=== PATIENT | male | born 1955 | race Caucasian/White ===

== ENCOUNTER → 2016-04-20 | Outpatient (REF) | payer OTHER ==
[2016-04-20 17:44] LABS: ALBUMIN/GLOBULIN RATIO 1.48 (1.00-1.93); ALKALINE PHOSPHATASE 60 U/L (45-117); ALT/SGPT 41 U/L (12-78); ANION GAP 6 MEQ/L (8-16); AST/SGOT 29 U/L (15-37); BILIRUBIN,TOTAL 0.7 MG/DL (0.2-1.0); BLOOD UREA NITROGEN 18 MG/DL (7-18); CALCIUM LEVEL 8.6 MG/DL (8.5-10.1); CARBON DIOXIDE LEVEL 30 MEQ/L (21-32); CHLORIDE LEVEL 106 MEQ/L (98-107); CREATININE FOR GFR 1.17 MG/DL (0.70-1.30); FERRITIN 108 NG/ML (26-388); GLOMERULAR FILTRATION RATE > 60.0 (>56); GLUCOSE, FASTING 89 MG/DL (70-105); MAGNESIUM LEVEL 2.2 MG/DL (1.8-2.4); PERCENT SATURATION 19.5 % (19.7-37.4); PHOSPHORUS LEVEL 3.4 MG/DL (2.5-4.9); POTASSIUM SERUM 3.9 MEQ/L (3.5-5.1); SODIUM LEVEL 142 MEQ/L (136-145); TOTAL IRON BINDING CAPACITY 307 UG/DL (250-450); TOTAL PROTEIN 6.7 GM/DL (6.4-8.2)
[2016-04-20 17:48] LABS: VITAMIN B12 LEVEL 854 PG/ML (247-911)
[2016-04-20 18:05] LABS: BASO % 0.4 % (0.0-1.0); EOS # 0.1 K/mm3 (0.0-0.50); EOS % 1.5 % (0.0-3.0); LARGE UNSTAINED CELL # 0.1 K/mm3 (0.0-0.4); LARGE UNSTAINED CELL % 1.8 % (0.0-4.0); LYMPH # 1.3 K/mm3 (1.5-4.5); LYMPH % 26.9 % (24.0-44.0); MEAN CORPUSCULAR HEMOGLOBIN 30.7 pg (27.0-33.0); MEAN CORPUSCULAR HGB CONC 33.7 g/dl (32.0-36.5); MEAN CORPUSCULAR VOLUME 91.2 fl (80.0-96.0); MONO # 0.2 K/mm3 (0.0-0.8); MONO % 4.3 % (0.0-5.0); NEUTROPHILS # 3.2 K/mm3 (1.8-7.7); NEUTROPHILS % 65.1 % (36.0-66.0); PLATELET COUNT, AUTOMATED 189 k/mm3 (150-450); RED CELL DISTRIBUTION WIDTH 12.1 % (11.5-14.5); WHITE BLOOD COUNT 4.9 K/mm3 (4.0-10.0)
== END ==
LOC: M LABDRAW1 16:54
PROVIDERS: ATTEND Surgery
DX: K91.2 Postsurgical malabsorption, not elsewhere classified (principal); Z98.84 Bariatric surgery status; E55.9 Vitamin D deficiency, unspecified

== ENCOUNTER → 2016-05-20 | Outpatient (REF) | payer OTHER ==
[2016-05-20 12:34] LABS: ALBUMIN 3.9 GM/DL (3.2-5.2); ALBUMIN/GLOBULIN RATIO 1.63 (1.00-1.93); ALKALINE PHOSPHATASE 61 U/L (45-117); ALT/SGPT 34 U/L (12-78); ANION GAP 8 MEQ/L (8-16); AST/SGOT 19 U/L (15-37); BLOOD UREA NITROGEN 22 MG/DL (7-18); CALCIUM LEVEL 8.7 MG/DL (8.5-10.1); CARBON DIOXIDE LEVEL 30 MEQ/L (21-32); CHLORIDE LEVEL 107 MEQ/L (98-107); CHOLESTEROL LEVEL 117 MG/DL (<200); CREATININE FOR GFR 0.77 MG/DL (0.70-1.30); GLOMERULAR FILTRATION RATE > 60.0 (>56); GLUCOSE, FASTING 101 MG/DL (70-105); POTASSIUM SERUM 3.9 MEQ/L (3.5-5.1); SODIUM LEVEL 145 MEQ/L (136-145); TOTAL PROTEIN 6.3 GM/DL (6.4-8.2); TRIGLYCERIDES LEVEL 67 MG/DL (<150)
== END ==
LOC: M LABDRAW1 11:58
PROVIDERS: ATTEND Emergency Medicine
DX: I10 Essential (primary) hypertension (principal); E78.2 Mixed hyperlipidemia; E55.9 Vitamin D deficiency, unspecified

== ENCOUNTER → 2016-10-14 | Outpatient (REF) | payer OTHER ==
[2016-10-14 12:36] LABS: BASO % 0.3 % (0.0-1.0); EOS # 0.1 K/mm3 (0.0-0.50); EOS % 1.8 % (0.0-3.0); LARGE UNSTAINED CELL % 1.1 % (0.0-4.0); LYMPH # 0.9 K/mm3 (1.5-4.5); LYMPH % 23.8 % (24.0-44.0); MEAN CORPUSCULAR HEMOGLOBIN 32.6 pg (27.0-33.0); MEAN CORPUSCULAR HGB CONC 35.8 g/dl (32.0-36.5); MEAN CORPUSCULAR VOLUME 91.1 fl (80.0-96.0); MONO # 0.3 K/mm3 (0.0-0.8); MONO % 6.7 % (0.0-5.0); NEUTROPHILS # 2.6 K/mm3 (1.8-7.7); NEUTROPHILS % 66.2 % (36.0-66.0); PLATELET COUNT, AUTOMATED 176 k/mm3 (150-450); RED CELL DISTRIBUTION WIDTH 12.4 % (11.5-14.5); WHITE BLOOD COUNT 3.8 K/mm3 (4.0-10.0)
[2016-10-14 12:54] LABS: VITAMIN B12 LEVEL 1095 PG/ML (247-911)
[2016-10-14 13:00] LABS: ALBUMIN 3.8 GM/DL (3.2-5.2); ALBUMIN/GLOBULIN RATIO 1.41 (1.00-1.93); ALKALINE PHOSPHATASE 55 U/L (45-117); ALT/SGPT 38 U/L (12-78); ANION GAP 8 MEQ/L (8-16); AST/SGOT 17 U/L (15-37); BLOOD UREA NITROGEN 20 MG/DL (7-18); CARBON DIOXIDE LEVEL 29 MEQ/L (21-32); CHLORIDE LEVEL 107 MEQ/L (98-107); CREATININE FOR GFR 0.89 MG/DL (0.70-1.30); FERRITIN 123 NG/ML (26-388); GLOMERULAR FILTRATION RATE > 60.0 (>56); GLUCOSE, FASTING 100 MG/DL (70-105); MAGNESIUM LEVEL 2.3 MG/DL (1.8-2.4); PHOSPHORUS LEVEL 2.6 MG/DL (2.5-4.9); SODIUM LEVEL 144 MEQ/L (136-145); TOTAL PROTEIN 6.5 GM/DL (6.4-8.2)
[2016-10-15 11:34] LABS: PRETREATED FOLATE FOR RBCFOL 14.7 NG/ML
== END ==
LOC: M LABDRAW1 11:05
PROVIDERS: ATTEND Surgery
DX: K92.1 Melena (principal); E55.9 Vitamin D deficiency, unspecified; Z98.84 Bariatric surgery status

== ENCOUNTER → 2016-11-30 | Outpatient (REF) | payer OTHER ==
[2016-11-30 12:13] LABS: BASO % 0.3 % (0.0-1.0); EOS # 0.1 K/mm3 (0.0-0.50); EOS % 1.5 % (0.0-3.0); LARGE UNSTAINED CELL # 0.1 K/mm3 (0.0-0.4); LARGE UNSTAINED CELL % 1.5 % (0.0-4.0); LYMPH % 26.8 % (24.0-44.0); MEAN CORPUSCULAR HEMOGLOBIN 33.3 pg (27.0-33.0); MEAN CORPUSCULAR HGB CONC 36.2 g/dl (32.0-36.5); MONO # 0.2 K/mm3 (0.0-0.8); MONO % 5.1 % (0.0-5.0); NEUTROPHILS # 2.5 K/mm3 (1.8-7.7); NEUTROPHILS % 64.8 % (36.0-66.0); PLATELET COUNT, AUTOMATED 145 k/mm3 (150-450); WHITE BLOOD COUNT 3.9 K/mm3 (4.0-10.0)
[2016-11-30 12:18] LABS: ALBUMIN 3.8 GM/DL (3.2-5.2); ALBUMIN/GLOBULIN RATIO 1.46 (1.00-1.93); ALKALINE PHOSPHATASE 52 U/L (45-117); ALT/SGPT 39 U/L (12-78); ANION GAP 5 MEQ/L (8-16); AST/SGOT 18 U/L (15-37); BLOOD UREA NITROGEN 25 MG/DL (7-18); CALCIUM LEVEL 8.9 MG/DL (8.5-10.1); CARBON DIOXIDE LEVEL 32 MEQ/L (21-32); CHLORIDE LEVEL 107 MEQ/L (98-107); CHOLESTEROL LEVEL 116 MG/DL (<200); CREATININE FOR GFR 0.77 MG/DL (0.70-1.30); GLOMERULAR FILTRATION RATE > 60.0 (>56); GLUCOSE, FASTING 84 MG/DL (70-105); SODIUM LEVEL 144 MEQ/L (136-145); TOTAL PROTEIN 6.4 GM/DL (6.4-8.2); TRIGLYCERIDES LEVEL 56 MG/DL (<150)
[2016-11-30 12:46] LABS: VITAMIN B12 LEVEL 766 PG/ML (247-911)
[2016-11-30 12:47] LABS: FOLATE > 24.0 NG/ML (>5.4)
== END ==
LOC: M LABDRAW1 09:59
PROVIDERS: ATTEND Emergency Medicine
DX: R73.01 Impaired fasting glucose (principal); I10 Essential (primary) hypertension; E78.2 Mixed hyperlipidemia; Z98.84 Bariatric surgery status; E55.9 Vitamin D deficiency, unspecified

== ENCOUNTER → 2017-03-22 | Outpatient (CLI) | payer BC, OTHER ==
[2017-03-22 21:34] LABS: BASO % 0.3 % (0.0-1.0); EOS # 0.1 10^3/uL (0.0-0.50); EOS % 1.8 % (0.0-3.0); HEMATOCRIT 42.1 % (42.0-52.0); IMMATURE GRANULOCYTE # 0.1 10^3/uL (0-0); IMMATURE GRANULOCYTE % 0.7 % (0-0); LYMPH # 1.7 10^3/uL (1.5-4.5); LYMPH % 24.7 % (24.0-44.0); MEAN CORPUSCULAR HEMOGLOBIN 30.6 pg (27.0-33.0); MEAN CORPUSCULAR HGB CONC 33.3 g/dl (32.0-36.5); MEAN CORPUSCULAR VOLUME 92.1 fl (80.0-96.0); MONO # 0.5 10^3/uL (0.0-0.8); MONO % 7.9 % (0.0-5.0); NEUTROPHILS # 4.4 10^3/uL (1.8-7.7); NEUTROPHILS % 64.6 % (36.0-66.0); PLATELET COUNT, AUTOMATED 219 10^3/uL (150-450); RED BLOOD COUNT 4.57 10^6/uL (4.30-6.10); RED CELL DISTRIBUTION WIDTH 11.9 % (11.5-14.5); WHITE BLOOD COUNT 6.9 10^3/uL (4.0-10.0)
== END ==
LOC: M ADAMS 15:09
DX: J20.9 Acute bronchitis, unspecified (principal)
CPT/HCPCS: 85025

== ENCOUNTER → 2017-06-02 | Outpatient (REF) | payer OTHER ==
[2017-06-02 12:11] LABS: TOTAL 25(OH) VITAMIN D 34.7 NG/ML (30.0-100.0)
[2017-06-02 13:33] LABS: ALBUMIN 3.8 GM/DL (3.2-5.2); ALBUMIN/GLOBULIN RATIO 1.46 (1.00-1.93); ALKALINE PHOSPHATASE 62 U/L (45-117); ALT/SGPT 38 U/L (12-78); ANION GAP 6 MEQ/L (8-16); AST/SGOT 14 U/L (7-37); BILIRUBIN,TOTAL 0.9 MG/DL (0.2-1.0); BLOOD UREA NITROGEN 20 MG/DL (7-18); CALCIUM LEVEL 8.8 MG/DL (8.5-10.1); CARBON DIOXIDE LEVEL 31 MEQ/L (21-32); CHLORIDE LEVEL 108 MEQ/L (98-107); CHOLESTEROL LEVEL 121 MG/DL (<200); CREATININE FOR GFR 0.88 MG/DL (0.70-1.30); GLOMERULAR FILTRATION RATE > 60.0 (>56); GLUCOSE, FASTING 100 MG/DL (70-100); HDL CHOLESTEROL 37 MG/DL (>40); LDL CHOLESTEROL 65.8 MG/DL (<100); NON-HDL-C 84 MG/DL; POTASSIUM SERUM 3.8 MEQ/L (3.5-5.1); SODIUM LEVEL 145 MEQ/L (136-145); TOTAL PROTEIN 6.4 GM/DL (6.4-8.2); TRIGLYCERIDES LEVEL 91 MG/DL (<150)
== END ==
LOC: M LABDRAW1 10:52
DX: E55.9 Vitamin D deficiency, unspecified (principal); E78.2 Mixed hyperlipidemia; I10 Essential (primary) hypertension
CPT/HCPCS: 80053

== ENCOUNTER → 2017-12-05 | Outpatient (REF) | payer OTHER ==
[2017-12-05 13:25] LABS: BASO % 0.4 % (0.0-1.0); EOS # 0.1 10^3/uL (0.0-0.50); EOS % 2.1 % (0.0-3.0); HEMATOCRIT 43.8 % (42.0-52.0); HEMOGLOBIN 14.5 g/dl (13.5-17.5); IMMATURE GRANULOCYTE % 0.6 % (0-3.0); LYMPH # 1.3 10^3/uL (1.5-4.5); LYMPH % 26.8 % (24.0-44.0); MEAN CORPUSCULAR HEMOGLOBIN 31.2 pg (27.0-33.0); MEAN CORPUSCULAR HGB CONC 33.1 g/dl (32.0-36.5); MEAN CORPUSCULAR VOLUME 94.2 fl (80.0-96.0); MONO # 0.4 10^3/uL (0.0-0.8); MONO % 8.6 % (0.0-5.0); NEUTROPHILS # 2.9 10^3/uL (1.8-7.7); NEUTROPHILS % 61.5 % (36.0-66.0); PLATELET COUNT, AUTOMATED 187 10^3/uL (150-450); RED BLOOD COUNT 4.65 10^6/uL (4.30-6.10); RED CELL DISTRIBUTION WIDTH 12.2 % (11.5-14.5); WHITE BLOOD COUNT 4.7 10^3/uL (4.0-10.0)
[2017-12-05 13:37] LABS: ALBUMIN 3.9 GM/DL (3.2-5.2); ALKALINE PHOSPHATASE 61 U/L (45-117); ALT/SGPT 35 U/L (12-78); ANION GAP 8 MEQ/L (8-16); AST/SGOT 22 U/L (7-37); BLOOD UREA NITROGEN 22 MG/DL (7-18); CALCIUM LEVEL 8.9 MG/DL (8.8-10.2); CARBON DIOXIDE LEVEL 30 MEQ/L (21-32); CHLORIDE LEVEL 105 MEQ/L (98-107); CHOLESTEROL LEVEL 131 MG/DL (<200); CHOLESTEROL RISK RATIO 3.195 (<5); CREATININE FOR GFR 0.91 MG/DL (0.70-1.30); GLOMERULAR FILTRATION RATE > 60.0 (>49); GLUCOSE, FASTING 96 MG/DL (70-100); HDL CHOLESTEROL 41 MG/DL (>40); LDL CHOLESTEROL 77 MG/DL (<100); NON-HDL-C 90 MG/DL; POTASSIUM SERUM 3.8 MEQ/L (3.5-5.1); SODIUM LEVEL 143 MEQ/L (136-145); TOTAL PROTEIN 6.5 GM/DL (6.4-8.2); TRIGLYCERIDES LEVEL 66 MG/DL (<150)
[2017-12-05 14:00] LABS: FOLATE 19.3 NG/ML (>5.4); TOTAL 25(OH) VITAMIN D 34.6 NG/ML (30.0-100.0)
[2017-12-05 14:43] LABS: ESTIMATED AVERAGE GLUCOSE 108 MG/DL (60-110); HEMOGLOBIN A1c 5.4 %
== END ==
LOC: M LABDRAW1 09:34
DX: I10 Essential (primary) hypertension (principal); E78.2 Mixed hyperlipidemia; R73.01 Impaired fasting glucose; E55.9 Vitamin D deficiency, unspecified; Z98.84 Bariatric surgery status

== ENCOUNTER → 2018-05-25 | Outpatient (REF) | payer OTHER ==
[2018-05-25 12:46] LABS: ALBUMIN 3.9 GM/DL (3.2-5.2); ALT/SGPT 35 U/L (12-78); BILIRUBIN,TOTAL 0.9 MG/DL (0.2-1.0); BLOOD UREA NITROGEN 23 MG/DL (7-18); CALCIUM LEVEL 9.1 MG/DL (8.8-10.2); CARBON DIOXIDE LEVEL 33 MEQ/L (21-32); CHLORIDE LEVEL 105 MEQ/L (98-107); CHOLESTEROL LEVEL 152 MG/DL (<200); CHOLESTEROL RISK RATIO 4.342 (<5); CREATININE FOR GFR 0.86 MG/DL (0.70-1.30); GLOMERULAR FILTRATION RATE > 60.0 (>49); GLUCOSE, FASTING 96 MG/DL (70-100); HDL CHOLESTEROL 35 MG/DL (>40); LDL CHOLESTEROL 91 MG/DL (<100); NON-HDL-C 117 MG/DL; POTASSIUM SERUM 3.5 MEQ/L (3.5-5.1); SODIUM LEVEL 142 MEQ/L (136-145); TOTAL PROTEIN 6.4 GM/DL (6.4-8.2); TRIGLYCERIDES LEVEL 131 MG/DL (<150)
[2018-05-25 12:53] LABS: TOTAL 25(OH) VITAMIN D 28.6 NG/ML (30.0-100.0)
== END ==
LOC: M LABDRAW1 11:48
PROVIDERS: ATTEND Emergency Medicine
DX: I10 Essential (primary) hypertension (principal); E78.2 Mixed hyperlipidemia; E55.9 Vitamin D deficiency, unspecified

== ENCOUNTER 2018-08-13 02:13 | Emergency (ER) | payer BC, OTHER ==
[~2018-08-13] VITALS: Ht 177.8 cm; Wt 109.1 kg
[2018-08-13] MEDS ORDERED: AMLO10TA5 (02:49)
[2018-08-13] MEDS ORDERED: CHLO125TA (02:49)
[2018-08-13] MEDS ORDERED: VITA500045 (02:49)
[2018-08-13] MEDS ORDERED: LOSA100T50 (02:49)
[2018-08-13] MEDS ORDERED: BUPR300T34 (02:49)
[2018-08-13] MEDS ORDERED: HYDR-643 (02:49)
[2018-08-13] MEDS ORDERED: GABAPOW41 (02:49)
[2018-08-13 02:51] LABS: BASO % 0.4 % (0.0-1.0); EOS # 0.1 10^3/uL (0.0-0.50); EOS % 0.9 % (0.0-3.0); HEMATOCRIT 43.8 % (42.0-52.0); HEMOGLOBIN 15.3 g/dl (13.5-17.5); LYMPH # 2.4 10^3/uL (1.5-4.5); LYMPH % 30.1 % (24.0-44.0); MEAN CORPUSCULAR HEMOGLOBIN 31.2 pg (27.0-33.0); MEAN CORPUSCULAR HGB CONC 34.9 g/dl (32.0-36.5); MEAN CORPUSCULAR VOLUME 89.4 fl (80.0-96.0); MONO # 0.7 10^3/uL (0.0-0.8); MONO % 8.2 % (0.0-5.0); NEUTROPHILS # 4.7 10^3/uL (1.8-7.7); PLATELET COUNT, AUTOMATED 240 10^3/uL (150-450); WHITE BLOOD COUNT 7.9 10^3/uL (4.0-10.0)
[2018-08-13] MEDS ORDERED: KETOROLAC 30 MG/ML VIAL (J1885) As Ordered ONE (02:52)
[2018-08-13] MEDS ORDERED: KETOROLAC 30 MG/ML VIAL (J1885) IV ONE (03:00)
[2018-08-13 03:17] LABS: ALBUMIN 3.8 GM/DL (3.2-5.2); ALT/SGPT 38 U/L (12-78); BILIRUBIN,DIRECT 0.1 MG/DL (0.0-0.2); BILIRUBIN,TOTAL 0.6 MG/DL (0.2-1.0); BLOOD UREA NITROGEN 27 MG/DL (7-18); CALCIUM LEVEL 8.7 MG/DL (8.8-10.2); CARBON DIOXIDE LEVEL 26 MEQ/L (21-32); CHLORIDE LEVEL 108 MEQ/L (98-107); CREATININE FOR GFR 1.17 MG/DL (0.70-1.30); GLOMERULAR FILTRATION RATE > 60.0 (>49); GLUCOSE, FASTING 144 MG/DL (70-100); LIPASE 106 U/L (73-393); SODIUM LEVEL 145 MEQ/L (136-145)
[2018-08-13] MEDS ORDERED: POTASSIUM CHLORIDE 10 MEQ SR TABLET PO ONE (07:15)
--- NOTE | 2018-08-13 07:31 | REPVR ---
EXAM: CT Abdomen and Pelvis Without Contrast EXAM DATE/TIME: 08/13/2018 5:52 AM CLINICAL HISTORY: 63 years old, male; Abdominal pain; Flank; Right; Additional info: Right flank pain, hematuria TECHNIQUE: Imaging protocol: Axial computed tomography images of the abdomen and pelvis without contrast. Coronal and sagittal reformatted images were created and reviewed. Radiation optimization: All CT scans at this facility use at least one of these dose optimization techniques: automated exposure control; mA and/or kV adjustment per patient size (includes targeted exams where dose is matched to clinical indication); or iterative reconstruction. COMPARISON: CT ABD PELVIS W/O CONTRAST 07/11/2015 8:13 AM FINDINGS: Pleural space: There is pleural thickening at the left lung base posteriorly. ABDOMEN: Liver: Normal. No mass. Gallbladder and bile ducts: Normal. No calcified stones. No ductal dilation. Pancreas: Normal. No ductal dilation. Spleen: There is accessory splenic tissue. There is splenomegaly, similar to prior study. Adrenals: Normal. No mass. Kidneys and ureters: There is moderate right-sided hydronephrosis. There is a 3 mm obstructing ureterovesical junction calculus. Stomach and bowel: Postsurgical changes are noted involving the stomach, please correlate with surgical history. Appendix: No evidence of appendicitis. PELVIS: Bladder: Unremarkable as visualized. Reproductive: There are multiple prostatic calcifications. ABDOMEN and PELVIS: Intraperitoneal space: Normal. No free air. No significant fluid collection. Bones/joints: No acute fracture. No dislocation. Soft tissues: Unremarkable. Vasculature: Normal. No abdominal aortic aneurysm. Lymph nodes: Normal. No enlarged lymph nodes. IMPRESSION: There is moderate right-sided hydronephrosis. There is a 3 mm obstructing ureterovesical junction calculus. Electronically signed by: Jaziel Johnson On 08/13/2018 07:30:56 AM
[2018-08-13] MEDS ORDERED: CIPR-249 PO (07:43)
[2018-08-13] MEDS ORDERED: FLOM0.4C39 PO (07:44)
[2018-08-13] MEDS ORDERED: NORC1TAB7 PO (07:45)
[2018-08-13] MEDS ORDERED: CIPROFLOXACIN 500 MG TAB PO ONE (07:45)
[2018-08-13] MEDS ORDERED: K-TA10TA2 PO (07:48)
[2018-08-13 08:06] VITALS: BP 176/92
== END 2018-08-13 08:08 | disposition home or self-care (01) ==
LOC: M ED 02:13
DX: N39.0 Urinary tract infection, site not specified (principal); N13.30 Unspecified hydronephrosis; I10 Essential (primary) hypertension; N20.1 Calculus of ureter; E87.6 Hypokalemia; Z79.899 Other long term (current) drug therapy; Z88.1 Allergy status to other antibiotic agents; Z88.2 Allergy status to sulfonamides; Z88.8 Allergy status to other drugs, medicaments and biological substances; Z91.048 Other nonmedicinal substance allergy status
CPT/HCPCS: 74176; 80048; 80076; 81001; 83690; 85025; 87086; 96374; 99284; J1885

== ENCOUNTER → 2018-09-01 | Outpatient (REF) | payer OTHER ==
[~2018-09-01] MED LIST: AMLO10TA5; BUPR300T34; CHLO125TA; CIPR-249 PO; FLOM0.4C39 PO; GABAPOW41; HYDR-643; K-TA10TA2 PO; LOSA100T50; NORC1TAB7 PO; VITA500045
[2018-09-01 19:35] LABS: APPEARANCE, URINE CLEAR (CLEAR); BACTERIA, URINE AUTO NEGATIVE (NEGATIVE); BILIRUBIN, URINE AUTO NEGATIVE (NEGATIVE); BLOOD, URINE BLOOD NEGATIVE (NEGATIVE); COLOR, URINE YELLOW (YELLOW); GLUCOSE, URINE (UA) AUTO NEGATIVE (NEGATIVE); KETONE, URINE AUTO NEGATIVE (NEGATIVE); LEUKOCYTE ESTERASE, URINE AUTO NEGATIVE (NEGATIVE); NITRITE, URINE AUTO NEGATIVE (NEGATIVE); PROTEIN, URINE AUTO NEGATIVE (NEGATIVE); RBC, URINE AUTO 1 /HPF (0-3); SPECIFIC GRAVITY URINE AUTO 1.017 (1.002-1.035); SQUAMOUS EPITHELIAL CELL UR AU 0 /HPF (0-6); UROBILINOGEN, URINE AUTO 0.2 mg/dL (0.0-2.0); WBC, URINE AUTO 0 /HPF (0-3)
== END ==
LOC: M LABSMT 13:02
PROVIDERS: ATTEND Nurse Practitioner Women's Health
DX: N13.2 Hydronephrosis with renal and ureteral calculous obstruction (principal)

== ENCOUNTER → 2018-10-03 | Outpatient (REF) | payer OTHER ==
[2018-10-03 12:55] LABS: ALBUMIN 3.9 GM/DL (3.2-5.2); ALT/SGPT 37 U/L (12-78); BILIRUBIN,TOTAL 0.8 MG/DL (0.2-1.0); BLOOD UREA NITROGEN 19 MG/DL (7-18); CALCIUM LEVEL 9.1 MG/DL (8.8-10.2); CARBON DIOXIDE LEVEL 32 MEQ/L (21-32); CHLORIDE LEVEL 105 MEQ/L (98-107); CREATININE FOR GFR 0.93 MG/DL (0.70-1.30); GLOMERULAR FILTRATION RATE > 60.0 (>49); GLUCOSE, FASTING 90 MG/DL (70-100); POTASSIUM SERUM 3.5 MEQ/L (3.5-5.1); SODIUM LEVEL 142 MEQ/L (136-145); TOTAL PROTEIN 6.6 GM/DL (6.4-8.2)
== END ==
LOC: M LABDRAW1 11:06
PROVIDERS: ATTEND Physician Assistant
DX: N20.9 Urinary calculus, unspecified (principal); N40.1 Benign prostatic hyperplasia with lower urinary tract symptoms

== ENCOUNTER → 2018-10-16 | Outpatient (REF) | payer OTHER ==
[2018-10-18 14:22] LABS: PSA % FREE 17.5 % (.); PSA FREE 0.7 ng/mL
== END ==
LOC: M LABDRAW1 17:06
PROVIDERS: ATTEND Physician Assistant
DX: R97.20 Elevated prostate specific antigen [PSA] (principal)

== ENCOUNTER → 2019-08-13 | Outpatient (REF) | payer OTHER ==
[~2019-08-13] MED LIST changes: -BUPR300T34; +BUPR300T92
[2019-08-13 13:24] LABS: HEMOGLOBIN A1c 6.1 %
[2019-08-13 13:33] LABS: ALBUMIN 3.8 GM/DL (3.2-5.2); ALT/SGPT 49 U/L (12-78); BILIRUBIN,TOTAL 0.8 MG/DL (0.2-1.0); BLOOD UREA NITROGEN 19 MG/DL (7-18); CALCIUM LEVEL 8.8 MG/DL (8.8-10.2); CARBON DIOXIDE LEVEL 32 MEQ/L (21-32); CHLORIDE LEVEL 104 MEQ/L (98-107); CHOLESTEROL LEVEL 140 MG/DL (<200); CHOLESTEROL RISK RATIO 3.888 (<5); GLOMERULAR FILTRATION RATE > 60.0 (>49); GLUCOSE, FASTING 92 MG/DL (70-100); HDL CHOLESTEROL 36 MG/DL (>40); LDL CHOLESTEROL 81 MG/DL (<100); NON-HDL-C 104 MG/DL; POTASSIUM SERUM 3.9 MEQ/L (3.5-5.1); SODIUM LEVEL 142 MEQ/L (136-145); TOTAL PROTEIN 6.5 GM/DL (6.4-8.2); TRIGLYCERIDES LEVEL 116 MG/DL (<150)
[2019-08-13 13:39] LABS: TOTAL 25(OH) VITAMIN D 66.6 NG/ML (30.0-100.0)
== END ==
LOC: M LABDRWAD 12:33
PROVIDERS: ATTEND Physician Assistant
DX: I10 Essential (primary) hypertension (principal); E55.9 Vitamin D deficiency, unspecified; R73.01 Impaired fasting glucose; E78.2 Mixed hyperlipidemia

== ENCOUNTER → 2020-02-19 | Outpatient (CLI) | payer OTHER ==
[~2020-02-19] MED LIST changes: -AMLO10TA5; +AMLO1TAB25
[2020-02-19 19:52] LABS: HEMOGLOBIN A1c 5.9 %
== END ==
LOC: M WUC 14:30
PROVIDERS: ATTEND Nurse Practitioner Family
DX: R73.03 Prediabetes (principal)

== ENCOUNTER → 2020-08-12 | Outpatient (REF) | payer OTHER ==
[2020-08-12 12:47] LABS: BASO % 0.4 % (0.0-1.0); EOS # 0.1 10^3/uL (0.0-0.5); EOS % 1.8 % (0.0-3.0); HEMATOCRIT 42.4 % (42.0-52.0); HEMOGLOBIN 14.4 g/dl (13.5-17.5); LYMPH # 1.3 10^3/uL (1.5-5.0); LYMPH % 27.1 % (24.0-44.0); MEAN CORPUSCULAR HEMOGLOBIN 30.9 pg (27.0-33.0); MONO # 0.5 10^3/uL (0.0-0.8); NEUTROPHILS # 2.9 10^3/uL (1.5-8.5); NEUTROPHILS % 60.1 % (36.0-66.0); PLATELET COUNT, AUTOMATED 204 10^3/uL (150-450); RED BLOOD COUNT 4.66 10^6/uL (4.30-6.10); WHITE BLOOD COUNT 4.9 10^3/uL (4.0-10.0)
[2020-08-12 13:18] LABS: ALBUMIN 3.8 GM/DL (3.2-5.2); ALT/SGPT 50 U/L (12-78); BILIRUBIN,TOTAL 0.8 MG/DL (0.2-1.0); BLOOD UREA NITROGEN 17 MG/DL (7-18); CALCIUM LEVEL 9.2 MG/DL (8.8-10.2); CARBON DIOXIDE LEVEL 30 MEQ/L (21-32); CHLORIDE LEVEL 104 MEQ/L (98-107); CHOLESTEROL LEVEL 135 MG/DL (<200); CHOLESTEROL RISK RATIO 3.552 (<5); CREATININE FOR GFR 0.84 MG/DL (0.70-1.30); GLOMERULAR FILTRATION RATE > 60.0 (>49); GLUCOSE, FASTING 89 MG/DL (70-100); HDL CHOLESTEROL 38 MG/DL (>40); LDL CHOLESTEROL 68 MG/DL (<100); NON-HDL-C 97 MG/DL; POTASSIUM SERUM 3.5 MEQ/L (3.5-5.1); SODIUM LEVEL 141 MEQ/L (136-145); TOTAL PROTEIN 6.4 GM/DL (6.4-8.2); TRIGLYCERIDES LEVEL 146 MG/DL (<150)
[2020-08-12 13:28] LABS: CREATININE, URINE 75.5 MG/DL; MALB URINE SIEMENS < 5.0 MG/L; MAU/CREAT RATIO 6.6 MCG/MG (0.0-30.0)
[2020-08-12 13:45] LABS: HEMOGLOBIN A1c 5.6 %
== END ==
LOC: M LABDRWAD 12:22
PROVIDERS: ATTEND Nurse Practitioner Family
DX: R73.03 Prediabetes (principal)

== ENCOUNTER 2021-01-18 22:57 | Emergency (ER) | payer BC, OTHER ==
[~2021-01-18] VITALS: Ht 180.3 cm; Wt 122.1 kg
[2021-01-18 22:58] VITALS: BP 158/82
--- OUTSIDE RECORDS SUMMARY | 2021-01-18 23:05 | CCD ---
Author Author [facility] Organization [facility] Address Unknown Phone Unavailable Care Team Providers Care Identity Access Management Architect Name Role Phone Pleskach, Delia UTILITY LOCATE TECHNICIAN Unavailable Unavailable Pleskach, Delia UTILITY LOCATE TECHNICIAN Unavailable Unavailable Pleskach, Delia UTILITY LOCATE TECHNICIAN Unavailable Unavailable Pleskach, Delia UTILITY LOCATE TECHNICIAN Unavailable Unavailable Pleskach, Delia UTILITY LOCATE TECHNICIAN Unavailable Unavailable Pleskach, Delia UTILITY LOCATE TECHNICIAN Unavailable Unavailable Pleskach, Delia UTILITY LOCATE TECHNICIAN Unavailable Unavailable Pleskach, Delia UTILITY LOCATE TECHNICIAN Unavailable Unavailable Pleskach, Delia UTILITY LOCATE TECHNICIAN Unavailable Unavailable Pleskach, Delia UTILITY LOCATE TECHNICIAN Unavailable Unavailable Pleskach, Delia UTILITY LOCATE TECHNICIAN Unavailable Unavailable Pleskach, Delia UTILITY LOCATE TECHNICIAN Unavailable Unavailable Pleskach, Delia UTILITY LOCATE TECHNICIAN Unavailable Unavailable Pleskach, Delia UTILITY LOCATE TECHNICIAN Unavailable Unavailable Pleskach, Delia UTILITY LOCATE TECHNICIAN Unavailable Unavailable Pleskach, Delia UTILITY LOCATE TECHNICIAN Unavailable Unavailable Pleskach, Delia UTILITY LOCATE TECHNICIAN Unavailable Unavailable Pleskach, Delia UTILITY LOCATE TECHNICIAN Unavailable Unavailable Pleskach, Delia UTILITY LOCATE TECHNICIAN Unavailable Unavailable Pleskach, Delia UTILITY LOCATE TECHNICIAN Unavailable Unavailable Pleskach, Delia UTILITY LOCATE TECHNICIAN Unavailable Unavailable Pleskach, Delia UTILITY LOCATE TECHNICIAN Unavailable Unavailable Pleskach, Delia UTILITY LOCATE TECHNICIAN Unavailable Unavailable Pleskach, Delia UTILITY LOCATE TECHNICIAN Unavailable Unavailable Pleskach, Delia UTILITY LOCATE TECHNICIAN Unavailable Unavailable Pleskach, Delia UTILITY LOCATE TECHNICIAN Unavailable Unavailable Pleskach, Delia UTILITY LOCATE TECHNICIAN Unavailable Unavailable Pleskach, Delia UTILITY LOCATE TECHNICIAN Unavailable Unavailable Pleskach, Delia UTILITY LOCATE TECHNICIAN Unavailable Unavailable Pleskach, Delia UTILITY LOCATE TECHNICIAN Unavailable Unavailable Pleskach, Delia UTILITY LOCATE TECHNICIAN Unavailable Unavailable Pleskach, Delia UTILITY LOCATE TECHNICIAN Unavailable Unavailable Pleskach, Delia UTILITY LOCATE TECHNICIAN Unavailable Unavailable Pleskach, Delia UTILITY LOCATE TECHNICIAN Unavailable Unavailable Pleskach, Delia UTILITY LOCATE TECHNICIAN Unavailable Unavailable Pleskach, Delia UTILITY LOCATE TECHNICIAN Unavailable Unavailable Pleskach, Delia UTILITY LOCATE TECHNICIAN Unavailable Unavailable Pleskach, Delia UTILITY LOCATE TECHNICIAN Unavailable Unavailable Pleskach, Delia UTILITY LOCATE TECHNICIAN Unavailable Unavailable Pleskach, Delia UTILITY LOCATE TECHNICIAN Unavailable Unavailable Pleskach, Delia UTILITY LOCATE TECHNICIAN Unavailable Unavailable Pleskach, Delia UTILITY LOCATE TECHNICIAN Unavailable Unavailable Pleskach, Delia UTILITY LOCATE TECHNICIAN Unavailable Unavailable Pleskach, Delia UTILITY LOCATE TECHNICIAN Unavailable Unavailable Suryadevara, Sandi Unavailable Unavailable Suryadevara, Sandi Unavailable Unavailable Suryadevara, Sandi Unavailable Unavailable Suryadevara, Sandi Unavailable Unavailable Suryadevara, Sandi Unavailable Unavailable Suryadevara, Sandi Unavailable Unavailable Suryadevara, Sandi Unavailable Unavailable Suryadevara, Sandi Unavailable Unavailable Suryadevara, Sandi Unavailable Unavailable Jeison Cueto MD Unavailable Unavailable Jeison Cueto MD Unavailable Unavailable Jeison Cueto MD Unavailable Unavailable Jeison Cueto MD Unavailable Unavailable Jeison Cueto MD Unavailable Unavailable Jeison Cueto MD Unavailable Unavailable Jeison Cueto MD Unavailable Unavailable Jeison Cueto MD Unavailable Unavailable Jeison Cueto MD Unavailable Unavailable Jeison Cueto MD Unavailable Unavailable Jeison Cueto MD Unavailable Unavailable Jeison Cueto MD Unavailable Unavailable Jeison Cueto MD Unavailable Unavailable Jeison Cueto MD Unavailable Unavailable Jeison Cueto MD Unavailable Unavailable Jeison Cueto MD Unavailable Unavailable Jeison Cueto MD Unavailable Unavailable Jeison Cueto MD Unavailable Unavailable Jeison Cueto MD Unavailable Unavailable Jeison Cueto MD Unavailable Unavailable Jeison Cueto MD Unavailable Unavailable Jeison Cueto MD Unavailable Unavailable Jeison Cueto MD Unavailable Unavailable Rom, Jeison Lay MD Unavailable Unavailable Rom, A Rosanne CREWS Unavailable Unavailable Rom, A Rosanne CERWS Unavailable Unavailable Rom, A Rosanne CREWS Unavailable Unavailable Rom, A Rosanne CREWS Unavailable Unavailable Rom, A Rosanne CREWS Unavailable Unavailable Rom, A Rosanne CREWS Unavailable Unavailable Rom, A Rosanne CREWS Unavailable Unavailable Rom, A Rosanne CREWS Unavailable Unavailable Rom, A Rosanne CREWS Unavailable Unavailable Rom, A Rosanne CREWS Unavailable Unavailable Rom, A Rosanne CREWS Unavailable Unavailable Rom, A Rosanne CREWS Unavailable Unavailable Rom, A Rosanne CREWS Unavailable Unavailable Rom, A Rosanne CREWS Unavailable Unavailable Rom, A Rosanne CREWS Unavailable Unavailable Rom, A Rosanne CREWS Unavailable Unavailable Rom, A Rosanne CREWS Unavailable Unavailable Rom, A Rosanne CREWS Unavailable Unavailable Rom, A Rosanne CREWS Unavailable Unavailable Rom, A Rosanne CREWS Unavailable Unavailable Rom, A Rosanne CREWS Unavailable Unavailable Rom, A Rosanne CREWS Unavailable Unavailable Rom, A Rosanne CREWS Unavailable Unavailable Rom, A Rosanne CREWS Unavailable Unavailable Rom, A Rosanne CREWS Unavailable Unavailable Rom, A Rosanne CREWS Unavailable Unavailable Rom, A Rosanne CREWS Unavailable Unavailable Rom, A Rosanne CREWS Unavailable Unavailable Rom, A Rosanne CREWS Unavailable Unavailable Rom, A Rosanne CREWS Unavailable Unavailable Rom, A Rosanne CREWS Unavailable Unavailable Rom, A Rosanne CREWS Unavailable Unavailable Rom, A Rosanne CREWS Unavailable Unavailable Rom, A Rosanne CREWS Unavailable Unavailable Rom, A Rosanne CREWS Unavailable Unavailable Rom, A Rosanne CREWS Unavailable Unavailable Rom, A Rosanne CREWS Unavailable Unavailable Rom, A Rosanne CREWS Unavailable Unavailable Rom, A Rosanne CREWS Unavailable Unavailable Rom, A Rosanne CREWS Unavailable Unavailable Rom, Jeison Lay MD Unavailable Unavailable Rom, A Rosanne CREWS Unavailable Unavailable Rom, A Rosanne CREWS Unavailable Unavailable Rom, A Rosanne CREWS Unavailable Unavailable Rom, Jeison Lay MD Unavailable Unavailable Rom, A Rosanne CREWS Unavailable Unavailable Rom, Jeison Lay MD Unavailable Unavailable Rom, A Rosanne CREWS Unavailable Unavailable Rom, A Rosanne CREWS Unavailable Unavailable Rom, A Rosanne CREWS Unavailable Unavailable Rom, A Rosanne CREWS Unavailable Unavailable Rom, A Rosanne CREWS Unavailable Unavailable Rom, A Rosanne CREWS Unavailable Unavailable Rom, A Rosanne CREWS Unavailable Unavailable Rom, A Rosanne CREWS Unavailable Unavailable Rmo, Jeison Lay MD Unavailable Unavailable Rom, Jeison Lay MD Unavailable Unavailable Rom, Jeison Lay MD Unavailable Unavailable HILLARY MONTALVO [id number] Unavailable Unavailable Re-disclosure Warning The records that you are about to access may contain information from federally-assisted alcohol or drug abuse programs. If such information is present, then the following federally mandated warning applies: This information has been disclosed to you from records protected by federal confidentiality rules (42 CFR part 2). The federal rules prohibit you from making any further disclosure of this information unless further disclosure is expressly permitted by the written consent of the person to whom it pertains or as otherwise permitted by 42 CFR part 2. A general authorization for the release of medical or other information is NOT sufficient for this purpose. The Federal rules restrict any use of the information to criminally investigate or prosecute any alcohol or drug abuse patient.The records that you are about to access may contain highly sensitive health information, the redisclosure of which is protected by Article 27-F of the [facility] Public Health law. If you continue you may have access to information: Regarding HIV / AIDS; Provided by facilities licensed or operated by the [facility] Office of Mental Health; or Provided by the [facility] Office for People With Developmental Disabilities. If such information is present, then the following [facility] mandated warning applies: This information has been disclosed to you from confidential records which are protected by state law. State law prohibits you from making any further disclosure of this information without the specific written consent of the person to whom it pertains, or as otherwise permitted by law. Any unauthorized further disclosure in violation of state law may result in a fine or nursing home sentence or both. A general authorization for the release of medical or other information is NOT sufficient authorization for further disc losure. Family History Family Member Name Family Member Gender Family Member Status Date o f Status Description Data Source(s) Unknown Unknown Problem [facility] ([facility], [facility]) Unknown Male Problem [facility] ([facility] () Unknown Female Problem [facility] ([facility] Encounters Encounter Providers Location Date Indications Data Source(s ) Outpatient Attender: Sandi Wallis 06/12/2021 12:00:0 0 AM [facility] Outpatient Attender: Sandi Wallis [id number] 03/2020 12:00:00 AM [facility] 12[facility]12/2020 [facility]53[facility]: Delia Mccarthy [facility] Main Office 08/21/2020 1 0:45:00 AM EDT [facility] ([facility] Outpatient Attender: Sandi Bimal [id number] 03/2020 12:00:00 AM EDT - 06/12/2020 11:01:27 AM EDT Other viral warts [facility] Other viral warts Outpatient Attender: Delia Mccarthy [facility] Main Office 02/21/2020 0 1:15:00 PM EST [facility] ([facility] Outpatient Attender: Sandi Hernandezrer: Rosanne heck [id number] 12/13/2019 12:00:00 AM EDT - 12/13/2019 01:26:14 PM EDT Other viral [facility] Other viral warts Outpatient Attender: HILLARY KATIA [id number] 12/12/2019 12:00: 00 AM EDT [facility] Immunizations Vaccine Date Status Description Data Source(s) COVID-19 VACCINE Moderna 05/17/2020 12:00:00 AM EST completed [facility] Vaccine Series Complete: NOThis Data was Submitted to [facility] Via [employer]. New in 2012. IIV4 12/21/2019 12:36:00 PM EDT completed [facility] ([facility] Medications Medication Brand Name Start Date Product Form Dose Route Admi nistrative Instructions Pharmacy Instructions Status Indications Reaction Description Data Source(s) Covid-19 vaccine, Unspecified 06/14/2020 12:00:00 AM EDT completed [facility] ([facility]) Medication administered onsite Mupirocin 0.02 MG/MG Topical Ointment Mu pirocin 2 % External Ointment (BACTROBAN) Mupirocin 2 % External Ointment (BACTROBAN) 04/24/2020 12:00:00 AM EST active [facility] sildenafil 100 MG Oral Tablet Sildenafil Citrate 100 M G Oral Tablet (VIAGRA) Sildenafil Citrate 100 MG Oral Tablet (VIAGRA) 02/21/2020 12:00:[address] [facility] sildenafil 100 MG Oral Tablet Sildenafil Citrate 02/21/2020 12:00:00 AM EST ORAL active [facility] ([facility] Versabase Cream [id number] 12/13/2019 12:00:00 AM EDT active Scrotal pruritus Apply to the scrotum BID [facility] Scrotal pruritus Hydrocortisone 25 MG/ML Topical Cream Hydrocortisone 2 .5 % External Cream Hydrocortisone 2.5 % External Cream 12/13/2019 12:00:00 AM EDT active Xerosis cutis Use BID PRN for itching on t he lower extremities. Do not use more than 2 consecutive weeks without taking a 1 week break in between. [facility] Xerosis cutis Hydroxyzine Hydrochloride 10 MG Oral Tab let hydrOXYzine HCl 10 MG Oral Tablet (ATARAX) hydrOXYzine HCl 10 MG Oral Tablet (ATARAX) 11/22/2019 12:00: 00 AM EDT active Xerosis cutis Take 1 tab let Po qhs as needed for itching. May increase to 2 tablets as needed [facility] Xerosis cutis Versabase Cream [id number] 10/08/2019 12:00:00 AM EDT aborted Scrotal pruritus Apply to the scrotum BID [facility] Scrotal pruritus Hydrocortisone 25 MG/ML Topical Cream Hydrocortisone 2 .5 % External Cream Hydrocortisone 2.5 % External Cream 06/22/2019 12:00:00 AM EDT aborted Xerosis cutis Use BID PRN for itch ing on the lower extremities. Do not use more than 2 consecutive weeks without taking a 1 week break in between. [facility] Xerosis cutis Insurance Providers Payer name Policy type / Coverage type Policy ID Covered alliance party ID Covered alliance party's relationship to gonzalez Policy Gonzalez Plan Information [facility] Health Maintenance Organization ([facility]) [id number] Family Dependent [id number] [facility] Health Maintenance Organization (HMO) [id number] Family Dependent 8 [id number] [employer] BCBS [id number] Spo [id number] [id number] EMPIRE PLAN [facility] U [id number] Self [id number] EMPIRE PLAN [facility] [id number] Self [id number] [employer] Workers Compensation [id number] Self [id number] Joyce [employer] Workers Compensation [id number] Self EMPIRE PLAN [facility] U [id number] Spouse [id number] [employer] [facility] [employer] Commercial [id number] Family Dependent [id number] [employer] Commercial [id number] Family Dependent [id number] Emp/[employer] Commercial [id number] Family Dependent [id number] [employer] Commercial [id number] Family Dependent [id number] [employer] Commercial [id number] Family Dependent [id number] Emp/[employer] Commercial [id number] Family Dependent [id number] [employer] Medigap Part B [id number] Family Dependent [id number] Emp/[employer] Commercial [id number] Family Dependent [id number] [employer] Commercial [id number] Family Depende nt Emp/[employer] Commercial [id number] Family Dependent BCBS EMPIRE LUCERO DIV [id number] SP [id number] EMPIRE (STATE EMP) P [id number] P [id number] [facility] EMPIRE PLAN O [id number] U [id number] EMPIRE HEALTH CHOICE O [id number] U [id number] EMPIRE HEALTH CHOICE O [id number] U [id number] CSEA EMP BENEFITFUND O [id number] S [id number] CSEA EMP BENEFITFUND O [id number] S [id number] EMPIRE (STATE EMP) P [id number] P [id number] [employer] [id number] SP [id number] BCBS EMPIRE LUCERO DIV [id number] WI2 [id number] [employer] [id number] WI2 [id number] ANSI-Commercial [id number] Emp/[employer] Commercial [id number] Family Dependent [id number] Joyce BC/BS Medigap Part B [id number] Self [id number] Emp/[facility] Commercial [id number] Family Dependent [id number] Problems, Conditions, and Diagnoses Code Display Name Description Problem Type Effective Dates Data Source(s) B07.8 Other viral warts Other viral warts Diagnosis 06/12/2020 10:02:34 AM [facility] L82.1 Other seborrheic keratosis Other seborrheic keratosis Diagnosis 12/13/2019 12:40:19 PM [facility] L81.4 Other melanin hyperpigmentation Other melanin hyperpig mentation Diagnosis 12/13/2019 12:40:19 PM [facility] 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 Nummular dermatitis Diagnosis 1 12:40:19 PM [facility] L85.3 Xerosis cutis Xerosis cutis Diagnosis 12/13/2019 12:40:19 PM EDT [facility] L29.1 Pruritus scroti Pruritus scroti Diagnosis 12/13/2019 12:4 0:19 PM EDT [facility] Surgeries/Procedures No Information Results ID Date Data Source [id number] 12/12/2020 11:02:13 AM EDT [facility] Name Value Range Interpretation Code Description Data Tara rce(s) Supporting Document(s) Progress Note [facility] ROMWHq1jZgGBTbSr07/STKcwZPKof5VcZLxaSJt7FSveQSSjJ4MnOZD0qU0bJHY7KArOWdQvArAoEBMe lbm [file] ICAgICAgICAgICAgICAgICAgICAgICAgICAgICAgIC AgICAgICAgICAgICAgICAgICAgICAgICAgICAgICAgICAgICAgICAgICANCiAgICAgICAgICAgICAgIC AgICAgICAgICAgICAgICAgICAgICAgICAgICAgICAgICAgICAgICAgICAgICAgICAgICAgICAgICAgIC AgICAgICAgICAgICAgICAgICAgICAgICANCiAgICAg ICAgICAgICAgICAgICAgICAgICAgICAgICAgICAgICAgICAgICAgICAgICAgICAgICAgICAgICAgICAg ICAgICAgICAgICAgICAgICAgICAgICAgICAgICAgICAgICANCiAgICAgICAgICAgICAgICAgICAgICAg ICAgICAgICAgICAgICAgICAgICAgICAgICAgICAgIC AgICAgICAgICAgICAgICAgICAgICAgICAgICAgICAgICAgICAgICAgICAgICANCiAgICAgICAgICAgIC AgICAgICAgICAgICAgICAgICAgICAgICAgICAgICAgICAgICAgICAgICAgICAgICAgICAgICAgICAgIC AgICAgICAgICAgICAgICAgICAgICAgICAgICANCiAg ICAgICAgICAgICAgICAgICAgICAgICAgICAgICAgICAgICAgICAgICAgICAgICAgICAgICAgICAgICAg ICAgICAgICAgICAgICAgICAgICAgICAgICAgICAgICAgICAgICANCiAgICAgICAgICAgICAgICAgICAg ICAgICAgICAgICAgICAgICAgICAgICAgICAgICAgIC AgICAgICAgICAgICAgICAgICAgICAgICAgICAgICAgICAgICAgICAgICAgICAgICANCiAgICAgICAgIC AgICAgICAgICAgICAgICAgICAgICAgICAgICAgICAgICAgICAgICAgICAgICAgICAgICAgICAgICAgIC AgICAgICAgICAgICAgICAgICAgICAgICAgICAgICAN CiAgICAgICAgICAgICAgICAgICAgICAgICAgICAgICAgICAgICAgICAgICAgICAgICAgICAgICAgICAg ICAgICAgICAgICAgICAgICAgICAgICAgICAgICAgICAgICAgICAgICANCiAgICAgICAgICAgICAgICAg ICAgICAgICAgICAgICAgICAgICAgICAgICAgICAgIC AgICAgICAgICAgICAgICAgICAgICAgICAgICAgICAgICAgICAgICAgICAgICAgICAgICANCjw/eHBhY2 wmcOYzdiN9B1bhGw2SNr8IOJ6sf5PkBYZsLBxtojHoUkmEQnRuNKKuNnxLGop5IPwwSK2TsWAqT3CdQ9 FlCTryLP1XLGXlDCBhoKCzZRYzESNvQvE1FDDhPPoe KN1NrNRvRThnRTHaCWKjVhIpSMJeGINoRIWaPCIwSGQALV6GYzVcI6XthO17PMUEDl3+DQplbmRvYmoN ZaJ0XPIwc6PjKEc4JG1AJIFaAtrpq3ZgHtUaXPLGPPgxZP9QRQJ9CSO7SXRuHd6MVEXvB605zaJnXC8Y Lv3XYyDcOX7ekk3IGuHbJUDfBusOXhs0UGtyCL7EtL WnDVsIcf8lzkMnmfLWg7HdbeHzrQMZYSUklGWeG4HpcWKxCLOxklQkJWIQPTN2WJWjZwYiShNfATEmJN zvSKHYSRgKBsEuS1Hdl5CfVtP2KZBdWmAbFDnaQRGfFzK8RI61eCodZD3BTAXaEZSbNH43RXZ9VWMlSi 5MZa7YKoBrMO9llh0JYmleEIJhZrvSOpi2ZMwxQP4S qYOrH6RyuMTtt6tFOcPvI7YDDCUgIBBwPs5KMTIzVlMgCZSwXTekXF4uKJGkIQUNxHqljcF7AW0PIZ8f siUyHY1LMlDjTp8uUw3YMlQjR6LbB9WtBTHbDNDDSFbsGY1ITWdqQS0sVY6Pn9LObWHwdZ2hup5TNMTh CSFpBarktf1HVvogI7X7rLhwOXBaCiZzMKDJPMteXE 0HRIEpRRI9NHXjMWKwEYUOHjRmD73zNN5WT9Bir72lBlT2JMBrKfPhUSdzLV07dIorubHlgCRlmMedRR 0NCj4+DSrjufEgXvsQMfozEWTXVvBjWddKZcUzTASiTPGbVGSuXgZ7DbXyEj3BKAZvFJGsAHBkRiVkPJ CrNDBfMFehEVBxVTA4FFP3FATmTHAsEZ9BGaIdKVLx RjEuFDBgZLZqNGOqtr9CPFCvUPYlMXT0VkCxOLTyHYYvOFtaMSMxEUX1FgW2JYSmNQDgFT1KYlXwMJRz JVO0BPZlFIDsCJCagc2CKGEqEUXzZKF1VUDbDATvFTYzUTjhENCoYIM5GoQgECMsVIDwUB8SEiXxRRNl ORH7VOIpKNSkVGFqgd1BZXRjRSVnAKx4UODsGTAfZP RdAKwfLCZcWCP5VNG2DQVtLPFgKH1UEzIhRRRqNLAlXbLdJHHoCYHjdb2FVSYbJIZgXDPeJnZiPQJoAE GzPOtgMTWnAGM2QEOhJVIuYVEiQT9XStBmNWNbYDX4ODJeMWMtRIQehv1KOXCtVSXyXgI0VdFtQBDuQB TuYEkjLXQyGOR9UCS7QEAzUHOnCA8GYbMfPDCrVDqj IHAbVAGnMXHgby7LQGJoENSnFWA8ZsVzMZDkOIOmYZazAHAuKLW3KKT0CJIvYIGqQA0QYpCoEVDbStcy KHDlQFHoXIYweo3ZCHNlOSBmROG4YqDgRAXrFROtLSasRTBgLLE7SLUcMLOfVDXcJQ5ZCqVdHFJgBip4 XXAyKOXuTWIcat9OIQHoYYRtAWE1RDYeFSVpCFLbQI oqOADhEHLtDlUvGDWrWJDfDF8SPeFbVHBaLlR7OVRaXFNcNKKzho0SuUDokJxhdq9LMHmFFq4WqBqyKY D4YOcoLe8wpFQmGbHzEQWUKg7ApjXyDDIkPRTZVBppLDPfMJKoRhJ2MPU2UBZ9StN5REJpIVY5POxeYT GlAkWeVvbsYcB5MCZuBxmgIljnCLqqNPS4Z1NxXWR8 NzFlNDIzNDJmOGU+ST6wPDb+Rt5At5YfxyY5baQrSRxjIQnxCL8OQKCPB1JRTi== ID Date Data Source [id number] 2020 10:25:00 AM EDT [facility] ([facility] Name Value Range Interpretation Code Description Data Tara rce(s) Supporting Document(s) Creatinine, Urine 75.5 mg/dL [facility] ([facility] Malb Urine Siemens Laboratory test result [facility] ([facility] James/Creat Ratio 6.6 MCG/MG 0.0-30.0 [facility] ([facility] THE [place] [employer] STATES THAT MICROALBUMINURIA IS PRESENT IF THE MICROALBUMIN/CREATININE RATIO EXCEEDS 30 MCG/MG. THE THRESHOLD FOR CLINICAL ALBUMINURIA IS REACHED AT 300 MCG/MG. THE CLASSIFICATION OF A PATIENT SHOULD BE BASED UPON AT LEAST 2 OF 3 ABNORMAL RESULTS ON SPECIMENS COLLECTED WITHIN A 3 TO 6 MONTH TIME FRAME. ID Date Data Source [id number] 2020 10:25:00 AM EDT [facility] ([facility] Name Value Range Interpretation Code Description Data Tara e(s) Supporting Document(s) Triglycerides Level 146 mg/dL [facility] ([facility] Cholesterol Level 135 mg/dL [facility] ([facility] HDL Cholesterol 38 mg/dL [facility] ([facility] Non-HDL-C 97 mg/dL [facility] ([facility] Cholesterol Risk Ratio 3.552 [facility] LDL Cholesterol 68 mg/dL [facility] ID Date Data Source [id number] 2020 10:25:00 AM EDT [facility] ([facility] Name Value Range Interpretation Code Description Data Tara e(s) Supporting Document(s) Estimated Average Glucose 114 mg/dL 60-110 [facility] ([facility] Hemoglobin A1c/Hemoglobin.total in Blood 5.6 % [facility] <content>REFERENCE RANGES:</content><br/ ><content></content>
<content><=5.6% NORMAL</content>
<content>5.7-6.4% SUGGESTS IMPAIRED GLUCOSE METABOLISM/PREDIABETIC</content>
<content>>= 6.5% ABNORMAL</content>
<content></content> ID Date Data Source [id number] 2020 10:25:00 AM EDT [facility] ([facility] Name Value Range Interpretation Code Description Data Tara e(s) Supporting Document(s) Glucose, Fasting 89 mg/dL 70-100 [facility] ([facility] Creatinine For GFR 0.84 mg/dL 0.70-1.30 [facility] ([facility] Glomerular Filtration Rate Laboratory test result [facility] ([facility] <content>Units are mL/min/1.73 m2</content>
<content></content>
<content>Chronic Kidney Disease Staging per NKF:</content>
<content></content>
<content>Stage I & II GFR >=60 Normal to Mildly Decreased</content>
<content>Stage III GFR 30-59 Moderately Decreased</content>
<content>Stage IV GFR 15-29 Severely Decreased</content>
<content>Stage V GFR <15 Very Little GFR Left</content>
<content>ESRD GFR <15 on [employer]</content>
<content></content> Blood Urea Nitrogen 17 mg/dL 7-18 [facility] ([facility] Sodium Level 141 meq/L 136-145 [facility] ([facility] Potassium Serum 3.5 meq/L 3.5-5.1 [facility] ([facility] Chloride Level 104 meq/L 98-107 [facility] Carbon Dioxide Level 30 meq/L 21-32 [facility] ([facility] Calcium Level 9.2 mg/dL 8.8-10.2 [facility] ([facility] Anion Gap 7 meq/L 8-16 [facility] Ast/Sgot 23 U/L 7-37 [facility] Alt/SGPT 50 U/L 12-78 [facility] Alkaline Phosphatase 67 U/L 45-117 [facility] ([facility] Total Protein 6.4 GM/DL 6.4-8.2 [facility] ([facility] Bilirubin,Total 0.8 mg/dL 0.2-1.0 [facility] ([facility] Albumin 3.8 GM/DL 3.2-5.2 [facility] ([facility] Albumin/Globulin Ratio 1.5 [facility] ID Date Data Source [id number] 2020 10:25:00 AM EDT [facility] ([facility] Name Value Range Interpretation Code Description Data Tara rce(s) Supporting Document(s) White Blood Count 4.9 10 4.0-10.0 [facility] ([facility] Red Blood Count 4.66 10 4.30-6.10 [facility] ([facility] Hemoglobin 14.4 g/dL 13.5-17.5 [facility] ([facility] Mean Corpuscular Volume 91.0 fl 80.0-96.0 M [facility]ENT ([facility] Hematocrit 42.4 % 42.0-52.0 [facility] ([facility] Mean Corpuscular Hemoglobin 30.9 pg 27.0-33.0 [facility] ([facility] Mean Corpuscular HGB Conc 34.0 g/dL 32.0-36.5 [facility] ([facility] Platelet Count, Automated 204 10 150-450 [facility] ([facility] Red Cell Distribution Width 12.2 % 11.5-14.5 [facility] ([facility] Neutrophils % 60.1 % 36.0-66.0 [facility] ([facility] [place] % 10.0 % 2.0-8.0 [facility] ([facility] Lymph % 27.1 % 24.0-44.0 [facility] ([facility] Eos % 1.8 % 0.0-3.0 [facility] ([facility] Immature Granulocyte % 0.6 % 0-3.0 [facility] ([facility] Baso % 0.4 % 0.0-1.0 [facility] ([facility] Nucleated Red Blood Cell % 0.0 % 0-0 MED ENT ([facility] Neutrophils # 2.9 10 1.5-8.5 [facility] ([facility] [place] # 0.5 10 0.0-0.8 [facility] ([facility] Eos # 0.1 10 0.0-0.5 [facility] ([facility] Lymph # 1.3 10 1.5-5.0 [facility] ([facility] Baso # 0.0 10 0.0-0.2 [facility] ([facility] ID Date Data Source [id number] 06/12/2020 10:58:17 AM EDT [facility] Name Value Range Interpretation Code Description Data Tara rce(s) Supporting Document(s) Progress Note [facility] MGKMNn1tBfGWJvDk67/TJIeiRRNuk5IkQQxpMOt4MLjuNEVtE7QcNFB1tW1lAGI1MMiYKkStIbPhYQWo lbm [file] ICAgICAgICAgICAgICAgICAgICAgICAgICAgICAgIC VeTYVxUITjWFUtGIQsUAGqCRVwDNIzTJKmWQImPEZfYKFgHUSkBVLqLDItQJBaIRQjJJCiWMCeKL0ZEQ AgICAgICAgICAgICAgICAgICAgICAgICAgICAgICAgICAgICAgICAgICAgICAgICAgICAgICAgICAgIC AgICAgICAgICAgICAgICAgICAgICAgICAgICAgICAg LGFbJJTuGI2QZMYhUGPzNNHvIAIxXCEqOAIjEHOuUFPhLWPkRGBrFEDzTTHrQRJoXXBpBNBaLMRxKJIx QLTwIFFuKEOzEBGuWXObYHCiPKQkWAQwKBQuRRCyMSVsUNXcJRCeQZEuJKYpCONeBP9GFPVnOPAxIVTb ICAgICAgICAgICAgICAgICAgICAgICAgICAgICAgIC AgICAgICAgICAgICAgICAgICAgICAgICAgICAgICAgICAgICAgICAgICAgICAgICAgICAgICAgICAgIA 0KICAgICAgICAgICAgICAgICAgICAgICAgICAgICAgICAgICAgICAgICAgICAgICAgICAgICAgICAgIC AgICAgICAgICAgICAgICAgICAgICAgICAgICAgICAg DPShBVCwBUCgUP4SPDTbLUYiOVAoMWNfDICaWTUbUQNwVWIxDFPpNKUeJLLoPRJmBMHyLUDqKKTvUNAx LQPpGOAgXWYkWPJlJQNcGLEfMJWkVKBtREMcRZFeDCWbUFRjBCLiDANwOIYvCJFiNRHqGY8WXYOcVWTa ICAgICAgICAgICAgICAgICAgICAgICAgICAgICAgIC AgICAgICAgICAgICAgICAgICAgICAgICAgICAgICAgICAgICAgICAgICAgICAgICAgICAgICAgICAgIC WoWW5GWEBnMMAkWWLfJRYjIPRyJFTfQSErUXPfMLZtUZFiDHDeBIAhOUMeFUOcEXKtYOSlZVOtZXOjRW AgICAgICAgICAgICAgICAgICAgICAgICAgICAgICAg TGMwHCRnCDJzTDBqJO7DQNIhYXLeNHYrDYYbLJEyCHOaUVZaXQAvDNMqQOYvMHBxFZLrASAuKAJwUTWk PQKxNPHjKZSpWUStMGKzQPMqXBUxRUXzDGFqDWUgYDGiWZDpXZVhOPAkCEMpBHNyJSXwXZRmBP5DUO09 hCLpm9M2FVUgXK6aovx/Bv0OSDykzlYhoSBeYB5IZp EjOZ6ahc2CFeFuWC9mns5TQQgOLgEzO5T3vUEdUWJwICPFJnAwV36pXKhhYs98XKfgIIQhOePbNNz1Aa 0QHpTxC0mqEQVeGwY8BXVaBbH3RAOdTqY7OTEyKtYiXZvvZT3Lf4JklLEwHMo+Yz5WNY1hr4BkUUbuDw VaMT6wqe3SKYuUMhOiI8PpanY0XPP6BKVlFo1XVXZh RVIddXUhUKXlANGNNuXdZ5PfpV60LBKDAt3+PRxgcvHbIhfNExX7OILeh0VzILq2MT2DDPUlVFh4mQJr ZKDcL1Epm8KoCg36SQOeYapuM3A0iPBoISI3ihriKDL1ZHFeDUVNORUhkRI7VpSkHxBuUQDpQAqnQAMY XBkMAfItH5Wmw5GyTbK5TZTeKxJxBWaoIKEwZfU2FO 27kItyWX9PJQFnXDWlPJ06PKQsUHThYd4WGx4IXkTmAX0ifv1MPhOxEOMwWopXDns0GCdfWJ3MoONyH2 VwlATtv0mKWrBuP9ILXGJdFTXsJh3QECObTmFjZYOxWNgxLT7dPEPjVVASfMqsfnP5YI6RSE8tuvLqRA 8JVnZoOc4dWo9GOjAdH3ZjP5BpSAVqRJZVSMmxMV3G KPtwNI7uQS3Lu2AZoSTiwD5zjg8CICUvUVAmCikrpv9MAqlrU4L9bKspJWNpWiCxMZCXIJbcNF9CHRFu MEY7OHFtLeIhATGLVcKvP42gDW9EC5Cao74iSzJ7NWLcVmNrWDwlJG42iOerkbEcvQUsnXogPF1JFh3+ DQplbmRvYmoNCnhyZWYNCjAgMjYNCjAwMDAwMDAwMD FfTjJ7HrXyDr7SOSTkXDOrRTTwBzKqRWMjVYZvXTdhLCLiVSD3ZnGdVURdMXXiYQ8IUjBeCKAlXwt4Uh gbLQRfSJQhzb2NPXVoGTFdVXG5NlUpCYMzHEBlBCecFTXxKDIvZFKcUHQwBFRgPV8WKhDfXZCoUCSkKL PzFIDqPNAmms3LDHPlXUNkBdQiZyMeAIMuBBSlCTdo XDEaGNK9PiU8QLJfDWNgEA5DMtMeLVUrSRC6QhAcOYNcJHPqsr9SGKFmEEZcGERnHDItBZCcINAnHGgy PXEqABIlIVa5EHZgNCPrXE6TErEvKLFcNRS4BVVqABYeNOUuji5DBZOcHBQvMRz3EGZaUCBzQOUfVJff KZCpTTQaPDL9VZOtQTGsEY9WHtClTSAbJKAjEXZzKO VjSCQfif2TSWBsNJDrOlUlBKLbUSIjXTWzIErzCMYyBYM9YqZ0LKGiMDSkZO7VCiYnDNDgNeDwSUAsKG HvQGOthz3RVKGbRZXoTAD8QlOjTCXgXQYhEQdaIKEgMDC5NSIsRKHdKBLhTN6IDyWwXVXkXoW8LZuwCM AdNNDmjn3LSDRpLFJwLtP0AZWoYKTjORIjKUreDFQh ZGV3YAX9NFOgQXIuUF5LUnFrWUQvHyk7XPRvZHYcUDIhyc3MPBQgNWVgQqr4MnSgZJZnKOVqBNq8mvOh iFYxVUh1JX3II6KmdtNqXtTCXp7Mk297LXE5GYJyRc5UY0sdFg0iZWXqIAJXNv4VMFx0BCruZxGzCGL8 TsRzRkA9XTe1CKWyTEB6XRT6RbFnIdS+IDwxOWIyY2 C9INR0TsWmUETaBXVmPGVnRBr5YLyaEsEmVj7oFDJBMr1+GSbhvNDjtWkjDABDRkL4HJE1OQhxURBFDe 0K ID Date Data Source [id number] 02/19/2020 02:51:00 PM EST [facility] ([facility] Name Value Range Interpretation Code Description Data Tara rce(s) Supporting Document(s) Estimated Average Glucose 123 mg/dL 60-110 [facility] ([facility] Hemoglobin A1c/Hemoglobin.total in Blood 5.9 % [facility] ([facility] <content>REFERENCE RANGES:</content><br/ ><content></content>
<content><=5.6% NORMAL</content>
<content>5.7-6.4% SUGGESTS IMPAIRED GLUCOSE METABOLISM/PREDIABETIC</content>
<content>>= 6.5% ABNORMAL</content>
<content></content> ID Date Data Source [id number] 12/13/2019 01:29:50 PM T [facility] Name Value Range Interpretation Code Description Data [facility] rce(s) Supporting Document(s) Progress Note [facility] KWEEVx4kKpHZLpGj26/AKDozWRFew1YcOTfaNWp9BNvcIEVlU5ZoGWU2eR0qXMH7IEoMXzXlVjJiPMIu m [file] [id number]= Procedure Social History Code Duration Value Status Description Data Source(s ) Smoking 08/21/2020 12:00:00 AM EDT Patient has never smoked co mpleted Patient has never smoked [facility] ([facility] Smoking 07/14/2020 12:00:00 AM EDT Patient has never smoked co mpleted Patient has never smoked [facility] ([facility], ) Alcohol intake 06/12/2020 12:00:00 AM EDT Not Asked completed [facility] Tobacco use and exposure 06/12/2020 12:00:00 AM EDT Never used co mpleted Never used [facility] Smoking 06/12/2020 12:00:00 AM EDT Never smoker completed Never s [facility] Alcohol intake 12/13/2019 12:00:00 AM EDT Not Asked [facility] Vital Signs ID Date Data Source [id number] Name Value Range Interpretation Code Description Data Source(s) Systolic blood pressure 138 mm[Hg] 138 mm[Hg] M [facility]ENT ([facility] Body temperature 98.2 [degF] 98.2 [degF] [facility] ([facility] Respiratory rate 17 /min 17 /min [facility] ( [facility] Body height 70.5 [in_i] 70.5 [in_i] [facility] ([facility] 5'10.50" Body weight 257.50 [lb_av] 257.50 [lb_av] [facility] T ([facility] Oxygen saturation in Arterial blood by Pulse oximetry 97 % 97 % [facility] ([facility] [place] body weight 166 [lb_av] 166 [lb_av] [facility] T ([facility] Body mass index (BMI) [Ratio] 36.4 kg/m2 36.4 k g/m2 [facility] ([facility] Diastolic blood pressure 66 mm[Hg] 66 mm[Hg] [facility] ([facility] Heart rate 73 /min 73 /min [facility] ([facility] Systolic blood pressure 124 mm[Hg] 124 mm[Hg] [facility] ([facility]) Diastolic blood pressure 72 mm[Hg] 72 mm[Hg] [facility] ([facility]) Heart rate 76 /min 76 /min [facility] ([facility]) Oxygen saturation in Arterial blood by Pulse oximetry 98 % 98 % [facility] ([facility]) Room Air Body temperature 97.9 [degF] 97.9 [degF] [facility] ([facility]) Body height 69 [in_i] 69 [in_i] [facility] ([facility]) 5'9" Body weight 258.00 [lb_av] 258.00 [lb_av] [facility] Body mass index (BMI) [Ratio] 38.1 kg/m2 38.1 k g/m2 [facility] ([facility]) [place] body weight 160 [lb_av] 160 [lb_av] [facility] Body weight 117.029 kg 117.029 kg [facility] ([facility]) Body surface area Derived from formula 2.30 m2 2.30 m2 [facility] ([facility]) Body height 70.5 [in_i] 70.5 [in_i] [facility] ([facility] 5'10.50" Body weight 260.38 [lb_av] 260.38 [lb_av] [facility] ([facility] Systolic blood pressure 131 mm[Hg] 131 mm[Hg] M [facility] ([facility] Diastolic blood pressure 73 mm[Hg] 73 mm[Hg] [facility] ([facility] Heart rate 86 /min 86 /min [facility] ([facility] Body temperature 97.6 [degF] 97.6 [degF] [facility] ([facility] Respiratory rate 18 /min 18 /min [facility] ( [facility] Oxygen saturation in Arterial blood by Pulse oximetry 98 % 98 % [facility] ([facility] [place] body weight 166 [lb_av] 166 [lb_av] [facility] T ([facility] Body mass index (BMI) [Ratio] 36.8 kg/m2 36.8 k g/m2 [facility] ([facility] Body temperature 96.8 [degF] 96.8 [degF] [facility] ([facility] Body height 70.5 [in_i] 70.5 [in_i] [facility] ([facility] 5'10.50" [place] body weight 166 [lb_av] 166 [lb_av] [facility] T ([facility] ID Date Data Source [id number] 06/12/2020 11:01:41 AM [facility] Name Value Range Interpretation Code Description Data Source(s) WEIGHT RECORDED 261.6 lb 261.6 lb [facility] Body height Measured 70 in 70 in [facility] ID Date Data Source [id number] 12/13/2019 01:27:29 PM [facility] Name Value Range Interpretation Code Description Data Source(s) WEIGHT RECORDED 256.8 lb 256.8 lb [facility] Body height Measured 70 in 70 in [facility] Patient Treatment Plan of Care Planned Activity Planned Date Details Description Data Source (s) Mupirocin 0.02 MG/MG Topical Ointment 04/24/2020 12:00:00 AM [facility] sildenafil 100 MG Oral Tablet 02/21/2020 12:00:00 AM [facility] Hydrocortisone 25 MG/ML Topical Cream 12/13/2019 12:00:00 AM [facility] Versabase Cream 12/13/2019 12:00:00 AM [facility] Hydroxyzine Hydrochloride 10 MG Oral Tablet 11/22/2019 12:00:00 AM [facility] Versabase Cream 10/08/2019 12:00:00 AM [facility] Hydrocortisone 25 MG/ML Topical Cream 06/22/2019 12:00:00 AM [facility]
[2021-01-18] MEDS ORDERED: CYCL-707 PO (23:06)
[2021-01-18] MEDS ORDERED: ACET-645 PO (23:06)
--- OUTSIDE RECORDS SUMMARY | 2021-01-19 03:19 | CCD ---
Author Author [facility] Organization [facility] Address Unknown Phone Unavailable Care Team Providers Care Conceptor Name Role Phone Pleskach, Delia SKIING INSTRUCTOR Unavailable Unavailable Pleskach, Delia SKIING INSTRUCTOR Unavailable Unavailable Pleskach, Delia SKIING INSTRUCTOR Unavailable Unavailable Pleskach, Delia SKIING INSTRUCTOR Unavailable Unavailable Pleskach, Delia SKIING INSTRUCTOR Unavailable Unavailable Pleskach, Delia SKIING INSTRUCTOR Unavailable Unavailable Pleskach, Delia SKIING INSTRUCTOR Unavailable Unavailable Pleskach, Delia SKIING INSTRUCTOR Unavailable Unavailable Pleskach, Delia SKIING INSTRUCTOR Unavailable Unavailable Pleskach, Delia SKIING INSTRUCTOR Unavailable Unavailable Pleskach, Delia SKIING INSTRUCTOR Unavailable Unavailable Pleskach, Delia SKIING INSTRUCTOR Unavailable Unavailable Pleskach, Delia SKIING INSTRUCTOR Unavailable Unavailable Pleskach, Delia SKIING INSTRUCTOR Unavailable Unavailable Pleskach, Delia SKIING INSTRUCTOR Unavailable Unavailable Pleskach, Delia SKIING INSTRUCTOR Unavailable Unavailable Pleskach, Delia SKIING INSTRUCTOR Unavailable Unavailable Pleskach, Delia SKIING INSTRUCTOR Unavailable Unavailable Pleskach, Delia SKIING INSTRUCTOR Unavailable Unavailable Pleskach, Delia SKIING INSTRUCTOR Unavailable Unavailable Pleskach, Delia SKIING INSTRUCTOR Unavailable Unavailable Pleskach, Delia SKIING INSTRUCTOR Unavailable Unavailable Pleskach, Delia SKIING INSTRUCTOR Unavailable Unavailable Pleskach, Delia SKIING INSTRUCTOR Unavailable Unavailable Pleskach, Delia SKIING INSTRUCTOR Unavailable Unavailable Pleskach, Delia SKIING INSTRUCTOR Unavailable Unavailable Pleskach, Delia SKIING INSTRUCTOR Unavailable Unavailable Pleskach, Delia SKIING INSTRUCTOR Unavailable Unavailable Pleskach, Delia SKIING INSTRUCTOR Unavailable Unavailable Pleskach, Delia SKIING INSTRUCTOR Unavailable Unavailable Pleskach, Delia SKIING INSTRUCTOR Unavailable Unavailable Pleskach, Delia SKIING INSTRUCTOR Unavailable Unavailable Pleskach, Delia SKIING INSTRUCTOR Unavailable Unavailable Pleskach, Delia SKIING INSTRUCTOR Unavailable Unavailable Pleskach, Delia SKIING INSTRUCTOR Unavailable Unavailable Pleskach, Delia SKIING INSTRUCTOR Unavailable Unavailable Pleskach, Delia SKIING INSTRUCTOR Unavailable Unavailable Pleskach, Delia SKIING INSTRUCTOR Unavailable Unavailable Pleskach, Delia SKIING INSTRUCTOR Unavailable Unavailable Pleskach, Delia SKIING INSTRUCTOR Unavailable Unavailable Pleskach, Delia SKIING INSTRUCTOR Unavailable Unavailable Pleskach, Delia SKIING INSTRUCTOR Unavailable Unavailable Pleskach, Delia SKIING INSTRUCTOR Unavailable Unavailable Pleskach, Delia SKIING INSTRUCTOR Unavailable Unavailable Suryadevara, Sandi Unavailable Unavailable Suryadevara, [...] Jeison Lay MD Unavailable Unavailable HILLARY MONTALVO [id number] Unavailable Unavailable Re-disclosure Warning The records that [...] is protected by Article 27-F of the [facility] Public Health law. If you continue you may have access to information: Regarding HIV / AIDS; Provided by facilities licensed or operated by the [facility] Office of Mental Health; or Provided by the [facility] Office for People With Developmental Disabilities. If such information is present, then the following [facility] mandated warning applies: This information has been [...] Unknown Problem [facility] ([facility], [facility]) Unknown Male Problem [facility] ([facility] () Unknown Female Problem [facility] ([facility] Encounters Encounter Providers Location Date Indications Data Source(s ) Outpatient Attender: Sandi Wallis 06/12/2021 12:00:0 0 AM [facility] Outpatient Attender: Sandi Wallis [id number] 03/2020 12:00:00 AM [facility]12[facility]: Delia Mccarthy [facility] Main Office 08/21/2020 1 0:45:00 AM EDT [facility] ([facility] Outpatient Attender: Sandi Bimal [id number] 03/2020 12:00:00 AM EDT - 06/12/2020 11:01:27 AM EDT Other [facility] Other viral warts Outpatient Attender: Delia Mccarthy [facility] Main Office 02/21/2020 0 1:15:00 PM EST [facility] ([facility] Outpatient Attender: Sandi Hernandezrer: Rosanne heck [id number] 12/13/2019 12:00:00 AM EDT - 12/13/2019 01:26:14 PM EDT Other viral [facility] Other viral warts Outpatient Attender: HILLARY KATIA [id number] 12/12/2019 12:00: 00 AM EDT [facility] Immunizations Vaccine Date Status Description Data Source(s) COVID-19 VACCINE Moderna 05/17/2020 12:00:00 AM EST completed [facility] Vaccine Series Complete: NOThis Data was Submitted to [facility] Via [employer]. New in 2012. IIV4 12/21/2019 12:36:00 PM EDT completed [facility] ([facility] Medications Medication Brand Name Start Date Product Form Dose Route Admi nistrative Instructions Pharmacy Instructions Status Indications Reaction Description Data Source(s) Covid-19 vaccine, Unspecified 06/14/2020 12:00:00 AM EDT completed [facility] ([facility] Medication administered onsite Mupirocin 0.02 MG/MG Topical Ointment Mu pirocin 2 % External Ointment (BACTROBAN) Mupirocin 2 % External Ointment (BACTROBAN) 04/24/2020 12:00:00 AM EST active [facility] sildenafil 100 MG Oral Tablet Sildenafil Citrate 100 M G Oral Tablet (VIAGRA) Sildenafil Citrate 100 MG Oral Tablet (VIAGRA) 02/21/2020 12:00:00 AM EST active [facility] sildenafil 100 MG Oral Tablet Sildenafil Citrate 02/21/2020 12:00:00 AM EST ORAL active [facility] ([facility] Versabase Cream [id number] 12/13/2019 12:00:00 AM EDT active Scrotal pruritus Apply to the scrotum BID [facility] Scrotal pruritus Hydrocortisone 25 MG/ML Topical Cream Hydrocortisone 2 .5 % External Cream Hydrocortisone 2.5 % External Cream 12/13/2019 12:00:00 AM EDT active Xerosis cutis Use BID PRN for itching on t he lower extremities. Do not use more than 2 consecutive weeks without taking a 1 week break in between. [facility] Xerosis cutis Hydroxyzine Hydrochloride 10 MG Oral Tab let hydrOXYzine HCl 10 MG Oral Tablet (ATARAX) hydrOXYzine HCl 10 MG Oral Tablet (ATARAX) 11/22/2019 12:00: 00 AM EDT active Xerosis cutis Take 1 tab let Po qhs as needed for itching. May increase to 2 tablets as needed [facility] Xerosis cutis Versabase Cream [id number] 10/08/2019 12:00:00 AM EDT aborted Scrotal pruritus Apply to the scrotum BID [facility] Scrotal pruritus Hydrocortisone 25 MG/ML Topical Cream Hydrocortisone 2 .5 % External Cream Hydrocortisone 2.5 % External Cream 06/22/2019 12:00:00 AM EDT aborted Xerosis cutis Use BID PRN for itch ing on the lower extremities. Do not use more than 2 consecutive weeks without taking a 1 week break in between. [facility] Xerosis cutis Insurance Providers Payer name Policy type / Coverage type Policy ID Covered libertarian ID Covered libertarian's relationship to gonzalez Policy Gonzalez Plan Information [facility] [place] [id number] Family Dependent [id number] [facility] Health Maintenance Organization (HMO) [id number] Family Dependent [id number] [employer] BCBS [id number] Spo YLS [id number] EMPIRE PLAN [facility] U [id number] Self [id number] EMPIRE PLAN [facility] U [id number] Self [id number] [employer] Workers Compensation [id number] Self [id number] Joyce [employer] Workers Compensation [id number] Self EMPIRE PLAN [facility] U [id number] Spouse [id number] [employer] [id number] Family Dependent [id number] [employer] [id number] Family Dependent [id number] Emp/[employer] Commercial [id number] Family Dependent [id number] [employer] [id number] Family Dependent [id number] [employer] [id number] Family Dependent [id number] Emp/[employer] Commercial [id number] Family Dependent [id number] [employer] Medigap Part B [id number] Family Dependent [id number] Emp/[employer] Commercial [id number] Family Dependent [id number] [employer] [id number] Family Depende nt Emp/[employer] Commercial [id number] Family Dependent BCBS EMPIRE LUCERO DIV [id number] SP [id number] EMPIRE (STATE EMP) P [id number] P 8 [id number] [facility] EMPIRE PLAN O [id number] U [id number] EMPIRE HEALTH CHOICE O [id number] U [id number] EMPIRE HEALTH CHOICE O [id number] U [id number] CSEA EMP BENEFITFUND O [id number] S [id number] CSEA EMP BENEFITFUND O [id number] S [id number] EMPIRE (STATE EMP) P [id number] P 0 [id number] [facility] [id number] SP [id number] BCBS EMPIRE LUCERO DIV [id number] WI2 [id number] [employer] [id number] WI2 [id number] ANSI-Commercial [id number] Emp/[employer] Commercial [id number] Family Dependent [id number] Joyce BC/BS Medigap Part B [id number] Self [id number] Emp/[facility] Commercial [id number] Family Dependent [id number] Problems, Conditions, and Diagnoses Code Display Name Description Problem Type Effective Dates Data Source(s) B07.8 Other viral warts Other viral warts Diagnosis 06/12/2020 10:02:34 AM [facility] L82.1 Other seborrheic keratosis Other seborrheic keratosis Diagnosis 12/13/2019 12:40:19 PM [facility] L81.4 Other melanin hyperpigmentation Other melanin hyperpig mentation Diagnosis 12/13/2019 12:40:19 PM [facility] 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 Nummular dermatitis Diagnosis 1 12:40:19 PM [facility] L85.3 Xerosis cutis Xerosis cutis Diagnosis 12/13/2019 12:40:19 PM EDT [facility] L29.1 Pruritus scroti Pruritus scroti Diagnosis 12/13/2019 12:4 0:19 PM EDT [facility] Surgeries/Procedures No Information Results ID Date Data Source [id number] 12/12/2020 11:02:13 AM EDT [facility] Name Value Range Interpretation Code Description Data Tara rce(s) Supporting Document(s) Progress Note [facility] LHVBLo6pZpQFSlVj72/UKTjkNYMuq3TaKHztFGk0OCgdQKToN3TcABE5vE0dAEW6DFqHWaMuQcWtTFOr lbm [file] ICAgICAgICAgICAgICAgICAgICAgICAgICAgICAgIC AgICAgICAgICAgICAgICAgICAgICAgICAgICAgICAgICAgICAgICAgICANCiAgICAgICAgICAgICAgIC AgICAgICAgICAgICAgICAgICAgICAgICAgICAgICAgICAgICAgICAgICAgICAgICAgICAgICAgICAgIC AgICAgICAgICAgICAgICAgICAgICAgICANCiAgICAg ICAgICAgICAgICAgICAgICAgICAgICAgICAgICAgICAgICAgICAgICAgICAgICAgICAgICAgICAgICAg ICAgICAgICAgICAgICAgICAgICAgICAgICAgICAgICAgICANCiAgICAgICAgICAgICAgICAgICAgICAg ICAgICAgICAgICAgICAgICAgICAgICAgICAgICAgIC AgICAgICAgICAgICAgICAgICAgICAgICAgICAgICAgICAgICAgICAgICAgICANCiAgICAgICAgICAgIC AgICAgICAgICAgICAgICAgICAgICAgICAgICAgICAgICAgICAgICAgICAgICAgICAgICAgICAgICAgIC AgICAgICAgICAgICAgICAgICAgICAgICAgICANCiAg ICAgICAgICAgICAgICAgICAgICAgICAgICAgICAgICAgICAgICAgICAgICAgICAgICAgICAgICAgICAg ICAgICAgICAgICAgICAgICAgICAgICAgICAgICAgICAgICAgICANCiAgICAgICAgICAgICAgICAgICAg ICAgICAgICAgICAgICAgICAgICAgICAgICAgICAgIC AgICAgICAgICAgICAgICAgICAgICAgICAgICAgICAgICAgICAgICAgICAgICAgICANCiAgICAgICAgIC AgICAgICAgICAgICAgICAgICAgICAgICAgICAgICAgICAgICAgICAgICAgICAgICAgICAgICAgICAgIC AgICAgICAgICAgICAgICAgICAgICAgICAgICAgICAN CiAgICAgICAgICAgICAgICAgICAgICAgICAgICAgICAgICAgICAgICAgICAgICAgICAgICAgICAgICAg ICAgICAgICAgICAgICAgICAgICAgICAgICAgICAgICAgICAgICAgICANCiAgICAgICAgICAgICAgICAg ICAgICAgICAgICAgICAgICAgICAgICAgICAgICAgIC AgICAgICAgICAgICAgICAgICAgICAgICAgICAgICAgICAgICAgICAgICAgICAgICAgICANCjw/eHBhY2 xwgLYrqlF9U1kxAe6QPl4MRT6ls9ZsTCIkAAmfbmMuIkoGDeLdDWYbPhqLSaw6FWdyRQ3CkBGwG2XhJ7 XkIXcoWA1GJRHzXWCsfYMqNJXxVWBbVcM2VJJeIQin RK3QwKYvQBqvXFUbTBCsXrLwMOTfWXTxXEDiDNOzSYJENN2NFnLxX4GnaR52TMCVUu2+DQplbmRvYmoN CzF2ITVta3VbGFt6HZ1JWDRoNxqsn7LxZtDeSZZIXVssDJ7UZLR1CSM6CBOuHo5QTCVyB942gqSmFA5M Cb3RMkHwWV5cqw3FZmQuECIvDowYXkr7UUkfCZ7VwO FcAUvEjd0habJbcnFPz2FtbmQzzUKWTCFytKCiY1RfsODfGWToiiUwJTNZDRK9EVDsBgReSlTdESQqMZ lfCBYJZQwOTsWyX4Vhu5JnCaJ4FVInXsIbVKrzZFEaWnN3UB98rZouAC1DANFbYDKpXX51UUX5BJHbTk 9WAk8EWzOrOU6plr4NJcidIEBaKdrNDsa0BSypSX1L hPFwE0KlgHPqe2fLSgHpT8HZJJHoGQPiDv4PAMRkOgPgOMZkASrrQP9gTVGfJNPBpTzkzyN6SF6GFZ1t ebRwGZ6CQcUjHm5wCw6WMnKuA3NeR6EcVXFwARIBVKmoZE9GTOhmNZ8cHD2Wa8GCbFSjeK1wer2EVWVf PUVxHinlrx3FEuizQ0B6xVgcQRJjKvBfFRSMXRxmNH 3JSDPtNJQ7PGVfRWFoPTSANiNpC43pLW9SX3Nhf40mDvS1NVPnGmEySKwxWE86wDmrkfYmcSYgbYukYL 0NCj4+QShvkoCySlqXWpvwABMYPoIkAssRBaXbSQWtUSAeSBLgQgH3ImDdCq9LXRPuGJHjLKSlHgEbBV KsLSBsRYgiBORtOMP7PXG2VIQjDNYyQN1TTiLdGEAk ScBuESNlPIGxNMRqqh1LEFEqMYLtDHB6LjYbAWGsDMQhZPsrPDXfKAN1EhP4NWYwZGRwSH4QXqFbXAVf MNE0GCSgUIZhMFOrpr3VRUGwFFLlKMR8QCKjYTSpWIIjUJnfYTZpERS9LiAjXPBjIZZwQF0MSfBySZLu MSE7EAJdYHOePXWcid8JCLFeUOKgDFq8GXLnUNCoOV RmQJyzUIUaUIT2YSC0JIYoMLNvXB3MQsOuPLYoZXWqDbXmGNKmEWOsnd1BPZBgJBLqTYDyUmZtLTKhZT QdYBxdAXNjLDD4ORHqPQJjUXWnKL3IAgHnWSUeRNB5FCSnOQGiTJIidq7YSAKiQQZrHdE9JxUqUNQmYX JkAJcfGXZqSFD3ARO2DBWeBIKeAW9ABrGtWTTvJZki HCAgOVQxFNRzdn3NBNRpMCOtRPE0JtTxAOMrQJRcRMumBTQaYDC3BPZ7JMXdBUHxAJ4VCeLyAFWhDsts BLJlKSWmWWSbkd7YWDYkABYbOHE6BpEvYPIaKLKdRMffSUKhLSB2NQKlCTTaCCLiQE1YRmWcYNOcJoz0 HPEyUKOmTJZmnj7CUCZfMHFyZCM5LWHcQIVaPGDqVY mzTOWdCWAtUdKdZUEaNAWdRT4QMmJhOJFpJzG6LCNhRIBdHFTgys9ZvKSkoQjunl1UHIkUYg6DsZnbWK D8WMkfKm6kvEVlDmKxMLUETw8UmhNdBQOnSQACTEecBNAmLJDvVnP5LTQ0QIX1MbM3VPApISH9HFuwZP RaUiQgKldaKfY3HBVcHmptVcauEBfjXWM8A9XhMJI5 NzFlNDIzNDJmOGU+VD4dAEe+Bb7Rq0HdthQ4jfEaFKbgUMvsFI1WGZAJO9LHPr== ID Date Data Source [id number] 2020 10:25:00 AM EDT [facility] ([facility] Name Value Range Interpretation Code Description Data Tara rce(s) Supporting Document(s) Creatinine, Urine 75.5 mg/dL [facility] ([facility] Malb Urine Siemens Laboratory test result [facility] ([facility] James/Creat Ratio 6.6 MCG/MG 0.0-30.0 [facility] ([facility] THE [employer] [employer] STATES THAT MICROALBUMINURIA IS PRESENT IF THE MICROALBUMIN/CREATININE RATIO EXCEEDS 30 MCG/MG. THE THRESHOLD FOR CLINICAL ALBUMINURIA IS REACHED AT 300 MCG/MG. THE CLASSIFICATION OF A PATIENT SHOULD BE BASED UPON AT LEAST 2 OF 3 ABNORMAL RESULTS ON SPECIMENS COLLECTED WITHIN A 3 TO 6 MONTH TIME FRAME. ID Date Data Source [id number] 2020 10:25:00 AM EDT [facility] ([facility] [...] [facility] ID Date Data Source [id number] 2020 10:25:00 AM EDT [facility] ([facility] Name Value Range Interpretation Code Description Data Tara e(s) Supporting Document(s) Estimated Average Glucose 114 mg/dL 60-110 [facility] ([facility] Hemoglobin A1c/Hemoglobin.total in Blood 5.6 % [facility] ([facility] <content>REFERENCE RANGES:</content><br/ ><content></content>
<content><=5.6% NORMAL</content>
<content>5.7-6.4% SUGGESTS IMPAIRED GLUCOSE METABOLISM/PREDIABETIC</content>
<content>>= 6.5% ABNORMAL</content>
<content></content> ID Date Data Source [id number] 2020 10:25:00 AM EDT [facility] (Rosanne Cueto [...] Little GFR Left</content>
<content>ESRD GFR <15 on ASPHALT TAMPER</content>
<content></content> Blood Urea Nitrogen 17 mg/dL 7-18 [facility] ([facility] Sodium Level 141 meq/L 136-145 [facility] ([facility] Potassium Serum 3.5 meq/L 3.5-5.1 [...] [facility] ID Date Data Source [id number] 2020 10:25:00 AM EDT [facility] (Rosanne Cueto [...] % 36.0-66.0 [facility] ([facility] Meade % 10.0 % 2.0-8.0 [facility] (Rosanne middleton [...] 10 1.5-8.5 [facility] ([facility] Meade # 0.5 10 0.0-0.8 [facility] ([facility] Eos # 0.1 10 0.0-0.5 [facility] ([facility] Lymph # 1.3 10 1.5-5.0 [facility] ([facility] Baso # 0.0 10 0.0-0.2 [facility] ([facility] ID Date Data Source [id number] 06/12/2020 10:58:17 AM EDT [facility] Name Value Range Interpretation Code Description Data Tara rce(s) Supporting Document(s) Progress Note [facility] YFCKRz8gLbDRYcIu37/MLFcwOAPcr9LaIMvkLNj8YFwsXFXlA8QgPSA8bF7zPDE1DNjRXcVmZiFgSUQm lbm [file] ICAgICAgICAgICAgICAgICAgICAgICAgICAgICAgIC QtESFcXWMjVSLyZKEgDTSnRTXxYEKwIVYvFHOtWULfAWCjJXFvFGTbOQCyUNGaVYNuSMVrSUQtJB4QSQ AgICAgICAgICAgICAgICAgICAgICAgICAgICAgICAgICAgICAgICAgICAgICAgICAgICAgICAgICAgIC AgICAgICAgICAgICAgICAgICAgICAgICAgICAgICAg LXYzGMErZH5DTHVgAOHhGJSlOGEmOPPzPMHzHEQtEQWsQTVoJEChEEHtFOFcWSYnFTDxRXNqRPWrSXRm RAWwMRCpZPNlEVVoCZFhSHPrBVCeWZGdRSPfQMKvWKRuVETjMIEyOMYuZDLfIMKaPE5GACXuJAKyGDLr ICAgICAgICAgICAgICAgICAgICAgICAgICAgICAgIC AgICAgICAgICAgICAgICAgICAgICAgICAgICAgICAgICAgICAgICAgICAgICAgICAgICAgICAgICAgIA 0KICAgICAgICAgICAgICAgICAgICAgICAgICAgICAgICAgICAgICAgICAgICAgICAgICAgICAgICAgIC AgICAgICAgICAgICAgICAgICAgICAgICAgICAgICAg EDBbZSHnKAIfNU0CIBDuUECtQDFbOCGcPDUlRAXaPPMsTTEcKWMkEXRiSNEaMOZeVUWdCEQfZPThXAFf NPElHUVsMONhYPVnWPGtAMXjEYSpKKYpOLLkVEBaSDVkHFSjIENbOBRmDNOxOZBiRZUgLT5AAKYePTJc ICAgICAgICAgICAgICAgICAgICAgICAgICAgICAgIC AgICAgICAgICAgICAgICAgICAgICAgICAgICAgICAgICAgICAgICAgICAgICAgICAgICAgICAgICAgIC MpTT3BYWQkEHZqDZMuZXXwRZWzRJBqCMHwEEXxGSGeKPSoMXOnXMRnRNNhKBZjXINdLBYhLZRiVVRePB AgICAgICAgICAgICAgICAgICAgICAgICAgICAgICAg PBYlJXHfRSXxRSOfCH8ULFWdGCPoRFPoDOIqDUViVBFoOSOyHRLpXICdYDHwINOqWCAiEIGfEWOlGYGj XLWcAQYgCGHkQCWkDMTtNXHdZFYmXARuEMEoWYHwFTXgQYKnPBHhDOJnSMHrUUJpIHVyKLGmZQ4FEB80 jLXrp1V8OQBtAB1hoyk/Vg4HSKxvhuEliXEuSB1YWc TsID6mfb6HPyHnHH4ajy5EFAxPXlZhR9C2rBRvHLRbKTLDTkMwS84mQMhnWf34NUugNKNmEtZnKXm7Un 7JTwWzS2adKTZrQnC7DUDsXyS5XRXtZxY6JDUtCkQiWYkrIM4Xo7LchRCjYZp+Ae2HJI0ad7XgIElyIl DdNE8qfb3LETaASqVeB1MawpF3HJY5ABDnCq3JKEGx DIHbvHHtFLUxWRLCPfKwB0WexD32IDNDRy0+COncdrDtAmtFJpT2QYLde7NjOKy5YN4ZNFBvKCv7qROt KYYxI5Vav4KlSj83BRXuLusxY4G5sMZtSHV4ghzfKPA7FQMqODVCOPIyiXO4UvBmUvWdXNEfTNgcMQIV CPqTCtTlE3Sbo8ZxYkW4ZBFgJjUtPLjeWDPlDtL0IA 52lLuiGF0TJFRlBUBwWW59NYQxFIZuYh8UGi6FNcPqBX5roc5VXkUxGHDcFelLBeh8UOojLW7DoCCbV0 JzqJBji6tMOpUyJ9AAGYZpLHOyIn0YEXEaWtXuMTPfRRxzGJ0sCIYhGLDMeAatmrO0LN7ULX6gpzYiHS 9EUiZfBo3aXj4SIiJlM6OoG0MaGYXdSVJNGRcdBP3L AVgiMY0eQA1Jt6XUtJXkxW7mqs0RQBOrWPFiBhdjyw9MQnusV4T5nCwkHLLsYkFaHEKMFEdmFR4KSEMu QAQ9WFXjYcEzJGGFTwMpL79cYG1IF5Qeq91kLhH6UCIiJpFyDKxxRV00kEuodbHyrTPysZnbGX3NMd8+ DQplbmRvYmoNCnhyZWYNCjAgMjYNCjAwMDAwMDAwMD NoVwZ5XuHcGs0BHWYdPXDdBXCoYiYnQXUvSMFaGIvqAXXaMDE4IsQhANFwEJPkDO5QRyDaMMCcWlr3Pk oeKHLaGGNieu8FZBXgUIRnNGJ6KuUbJZEmZUWhYDxzWULrYVJuQGBzLOHlGZGfGH4VDhMrZNVlFSFoZA QtFYMbYDBifz2JZQXhSTAkLkUlSrHpYDQqYGGrDHov DBQlHLD0FjW8PXRmPUBbRY7MRiDjRYBhBXY7ZeWhLWOvRJNotb1EOFFjCORcPZAoQKKuMLLsBGTlPXga RXTtMJTaDYb2JERdFUYuXE8GWgGzSWAqCRL9RUKjQAYeGRRxjn3QJXJrHUVfDBp4RCKfHSXvRCXpFNld ZGHyPDFzNDI4BSYrAEYdGX2QCdQqIXBgWPBiLRKoZD UiVXKuxa8ODFGzTHRoIpFfPMLgUTMgLILzWHyiMKWcGPV3HnQ3HUYoNGIzAL0LGnIgXYVgLpToQCDoDU UmBORzyu9ZFJYrCWIxMYL7DvOpIISlMZYoDZzzREQuRBC9ZASzFRDcERMbVD6PGzLzEUVhLrF9IDnnVH QiJIQcjq2LRNKyEXHhFtQ1CDDwDOSlORIoQMihEOBo WEI4ODP7PRArJTTmCL5NVgNlFDZyTmj1HSIjKNYhHHFlok3BLGDsWOInWaz9VrFfRYKeCQJlUKv9zcWp xGGvMXw2FV0NF5RmwaCoTqBKYr2Lz426EYU8LJYrAp5IC5koJc3kKBGiQWVNVu4SBKp7DLkyBdFoENG5 TiIgIfP6GFb4CJAuIRW1PZZ0TfBjIzB+IDwxOWIyY2 U4KHN3TrZaLRYoXKXlSQEuAVy8WYlgYsMrZs8yDDDUPr2+ZQturSJvxCmvPASLRcP9BBS3USchXZGMXo 0K ID Date Data Source [id number] 02/19/2020 02:51:00 PM EST [facility] ([facility] Name Value Range Interpretation Code Description Data Tara rce(s) Supporting Document(s) Estimated Average Glucose 123 mg/dL 60-110 [facility] ([facility] Hemoglobin A1c/Hemoglobin.total in Blood 5.9 % [facility] ([facility] <content>REFERENCE RANGES:</content><br/ ><content></content>
<content><=5.6% NORMAL</content>
<content>5.7-6.4% SUGGESTS IMPAIRED GLUCOSE METABOLISM/PREDIABETIC</content>
<content>>= 6.5% ABNORMAL</content>
<content></content> ID Date Data Source [id number] 12/13/2019 01:29:50 PM T [facility] Name Value Range Interpretation Code Description Data [facility] rce(s) Supporting Document(s) Progress Note [facility] QZVFMq9xMjKGBpVw54/ZMUskNPZqh5KdSHozGZn5NFdyNAOsW4MvORL2yQ0wFIE2BRhANjMvKaApJMEj m [file] [id number]= Procedure Social History Code Duration Value Status Description Data Source(s ) Smoking 08/21/2020 12:00:00 AM EDT Patient has never smoked co mpleted Patient has never smoked [facility] ([facility] Smoking 07/14/2020 12:00:00 AM EDT Patient has never smoked co mpleted Patient has never smoked [facility] ([facility], ) Alcohol intake 06/12/2020 12:00:00 AM EDT Not Asked completed [facility] Tobacco use and exposure 06/12/2020 12:00:00 AM EDT Never used co mpleted Never used [facility] Smoking 06/12/2020 12:00:00 AM EDT Never smoker completed Never s [facility] Alcohol intake 12/13/2019 12:00:00 AM EDT Not Asked [facility] Vital Signs ID Date Data Source UNK Name Value Range Interpretation Code Description Data Source(s) Systolic blood pressure 138 mm[Hg] 138 mm[Hg] [facility] ([facility] Diastolic blood pressure 66 mm[Hg] 66 mm[Hg] [facility] ([facility] Heart rate 73 /min 73 /min [facility] ([facility] Body temperature 98.2 [degF] 98.2 [degF] [facility] ([facility] Respiratory rate 17 /min 17 /min [facility] ( [facility] Body height 70.5 [in_i] 70.5 [in_i] [facility] ([facility] 5.50" Body weight 257.50 [lb_av] 257.50 [lb_av] [facility] ([facility] Oxygen saturation in Arterial blood by Pulse oximetry 97 % 97 % [facility] ([facility] [place] body weight 166 [lb_av] 166 [lb_av] [facility] ([facility] Body mass index (BMI) [Ratio] 36.4 kg/m2 36.4 k g/m2 [facility] ([facility] Systolic blood pressure 124 mm[Hg] 124 mm[Hg] [facility] ([facility]) Diastolic blood pressure 72 mm[Hg] 72 mm[Hg] [facility] ([facility]) Heart rate 76 /min 76 /min [facility] ([facility]) Oxygen saturation in Arterial blood by Pulse oximetry 98 % 98 % [facility] ([facility]) Room Air Body temperature 97.9 [degF] 97.9 [degF] [facility] ([facility]) Body height 69 [in_i] 69 [in_i] [facility] ([facility]) 5'9" Body weight 258.00 [lb_av] 258.00 [lb_av] [facility] Body mass index (BMI) [Ratio] 38.1 kg/m2 38.1 k g/m2 [facility] ([facility]) [place] body weight 160 [lb_av] 160 [lb_av] [facility] Body weight 117.029 kg 117.029 kg [facility] ([facility]) Body surface area Derived from formula 2.30 m2 2.30 m2 [facility] ([facility]) Body height 70.5 [in_i] 70.5 [in_i] [facility] ([facility] .50" Body weight 260.38 [lb_av] 260.38 [lb_av] [facility] ([facility] Systolic blood pressure 131 mm[Hg] 131 mm[Hg] M [facility] ([facility] Diastolic blood pressure 73 mm[Hg] [...] 98 % [facility] ([facility] [place] body weight 166 [lb_av] 166 [lb_av] [facility] T ([facility] Body mass index (BMI) [Ratio] 36.8 kg/m2 36.8 k g/m2 [facility] ([facility] Body temperature 96.8 [degF] 96.8 [degF] [facility] ([facility] Body height 70.5 [in_i] 70.5 [in_i] [facility] ([facility] 5'10.50" [place] body weight 166 [lb_av] 166 [lb_av] [facility] T ([facility] ID Date Data Source [id number] 06/12/2020 11:01:41 AM [facility] Name Value Range Interpretation Code Description Data Source(s) WEIGHT RECORDED 261.6 lb 261.6 lb [facility] Body height Measured 70 in 70 in [facility] ID Date Data Source [id number] 12/13/2019 01:27:29 PM [facility] Name Value Range Interpretation Code Description Data Source(s) WEIGHT RECORDED 256.8 lb 256.8 lb [facility] Body height Measured 70 in 70 in [facility] Patient Treatment Plan of Care Planned Activity Planned Date Details Description Data Source (s) Mupirocin 0.02 MG/MG Topical Ointment 04/24/2020 12:00:00 AM [facility] sildenafil 100 MG Oral Tablet 02/21/2020 12:00:00 AM [facility] Hydrocortisone 25 MG/ML Topical Cream 12/13/2019 12:00:00 AM [facility] Versabase Cream 12/13/2019 12:00:00 AM [facility] Hydroxyzine Hydrochloride 10 MG Oral Tablet 11/22/2019 12:00:00 AM [facility] Versabase Cream 10/08/2019 12:00:00 AM [facility] Hydrocortisone 25 MG/ML Topical Cream 06/22/2019 12:00:00 AM [facility]
== END 2021-01-19 03:29 | disposition left against medical advice (07) ==
LOC: M ED 22:57
DX: Z53.21 Procedure and treatment not carried out due to patient leaving prior to being seen by health care provider (principal)

== ENCOUNTER → 2021-01-19 | Outpatient (REF) | payer BC, OTHER ==
[~2021-01-19] MED LIST changes: +ACET-645 PO; +CYCL-707 PO
== END ==
LOC: M LAB REF 16:45
PROVIDERS: ATTEND Nurse Practitioner Family
DX: M54.50 Low back pain, unspecified (principal)

== ENCOUNTER → 2021-01-19 | Outpatient (CLI) | payer BC, OTHER ==
--- NOTE | 2021-01-19 17:12 | REP ---
INDICATION: LOWER BACK / FLANK PAIN ? STONES. COMPARISON: 08/13/2018 CT TECHNIQUE: Noncontrast scanning through the abdomen and pelvis with coronal and sagittal reconstructions. FINDINGS: CT abdomen: Lung bases are clear. Heart is not enlarged there is no pericardial thickening or effusion. No hiatal hernia. Evidence for prior gastric bypass noted. Liver is not enlarged and shows no focal hepatic lesion nor intrahepatic biliary dilatation. No adjacent ascites. Gallbladder shows no calcified stone or mass. Spleen is not enlarged and is without focal lesion there is no adjacent ascites in the upper abdomen pancreas without abnormality. Adrenal glands are normal. The aorta has a few calcifications but without aneurysm there is no periaortic, other retroperitoneal or mesenteric pathologic sized lymphadenopathy. Small bowel loops are without abnormal dilatation or adjacent inflammatory change. Kidneys are symmetric in size I see no definite stone, mass, cyst, hydronephrosis or hydroureter. The ureters show normal course to the bladder and are without stone. Abdominal portion of the colon shows no sign of colitis or diverticulitis. There is interposition of the colon between the anterior aspect of the right lobe of the liver and the abdominal and lower chest wall. This is an anatomic variation. Bone windows show the spine and lower ribs without acute finding. CT pelvis: Sacrum, SI joints, pelvis and hips are without fractures. There are bone islands in the posterior columns of the acetabulum as well as the right iliac bone above the acetabulum and just lateral to the sacrum. These are stable.9 distal left colon, sigmoid and rectum are unremarkable. Small bowel loops in the pelvis were unremarkable. I see no inflammatory change about the cecum nor evidence of acute appendicitis. Small bowel loops were unremarkable bladder shows no wall thickening, mass or stone. The distal ureters deep to the bladder without dilatation or stone. No ventral or inguinal hernia nor pathologic sized inguinal adenopathy. No pelvic free fluid. Lung window review of all CT slices in the abdomen and pelvis shows no free air or abscess. IMPRESSION: 1. There is no evidence of renal, ureteral or bladder stone. No hydronephrosis, hydroureter or inflammatory changes adjacent to these organs. Bladder unremarkable. 2. Solid organs in the upper abdomen were unremarkable. The gallbladder was intact. 3. Stomach shows evidence for prior gastric bypass. Small bowel loops normal. 4. Visualized bones of the pelvis and abdomen including the spine and lower ribs are unremarkable. Nothing acute today. <Electronically signed by Miguel Hua > 01/19/21 [id number]
== END ==
LOC: M RAD 16:33
PROVIDERS: ATTEND Nurse Practitioner Family
DX: M54.59 Other low back pain (principal)

== ENCOUNTER → 2021-08-12 | Outpatient (CLI) | payer BC, OTHER ==
[~2021-08-12] MED LIST changes: +LOSA100T45; -LOSA100T50
[2021-08-12 13:11] LABS: ALBUMIN 3.8 GM/DL (3.2-5.2); ALT/SGPT 50 U/L (12-78); BILIRUBIN,TOTAL 0.9 MG/DL (0.2-1.0); BLOOD UREA NITROGEN 24 MG/DL (7-18); CALCIUM LEVEL 9.8 MG/DL (8.8-10.2); CARBON DIOXIDE LEVEL 32 MEQ/L (21-32); CHLORIDE LEVEL 107 MEQ/L (98-107); CHOLESTEROL LEVEL 148 MG/DL (<200); CHOLESTEROL RISK RATIO 4.352 (<5); CREATININE FOR GFR 0.94 MG/DL (0.70-1.30); GLOMERULAR FILTRATION RATE > 60.0 (>49); GLUCOSE, FASTING 115 MG/DL (70-100); HDL CHOLESTEROL 34 MG/DL (>40); LDL CHOLESTEROL 94 MG/DL (<100); NON-HDL-C 114 MG/DL; POTASSIUM SERUM 3.5 MEQ/L (3.5-5.1); SODIUM LEVEL 143 MEQ/L (136-145); TOTAL PROTEIN 6.5 GM/DL (6.4-8.2); TRIGLYCERIDES LEVEL 100 MG/DL (<150)
[2021-08-12 13:34] LABS: HEMOGLOBIN A1c 5.8 %
[2021-08-12 13:53] LABS: MALB URINE SIEMENS 10.3 MG/L; MAU/CREAT RATIO 6.9 MCG/MG (0.0-30.0)
== END ==
LOC: M ADAMS 08:24
PROVIDERS: ATTEND Nurse Practitioner Family
DX: I10 Essential (primary) hypertension (principal); R73.03 Prediabetes

== ENCOUNTER → 2021-08-21 | Outpatient (CLI) | payer BC, OTHER | LOC: M ADAMS 09:57 | PROVIDERS: ATTEND Nurse Practitioner Family | DX: M25.512 Pain in left shoulder (principal) ==

== ENCOUNTER → 2022-01-25 | Outpatient (CLI) | payer BC, OTHER | LOC: M PAIN 13:00 | PROVIDERS: ATTEND Nurse Practitioner Family | DX: M50.10 Cervical disc disorder with radiculopathy, unspecified cervical region (principal); G89.29 Other chronic pain; I10 Essential (primary) hypertension; G47.30 Sleep apnea, unspecified; Z98.84 Bariatric surgery status; Z88.2 Allergy status to sulfonamides; Z91.09 Other allergy status, other than to drugs and biological substances; Z79.899 Other long term (current) drug therapy ==

== ENCOUNTER → 2022-02-11 | Outpatient (REF) | payer BC, OTHER ==
[2022-02-11 18:08] LABS: BLOOD UREA NITROGEN 19 MG/DL (9-23); CALCIUM LEVEL 9.4 MG/DL (8.3-10.6); CARBON DIOXIDE LEVEL 30 MMOL/L (20-31); CHLORIDE LEVEL 103 MMOL/L (98-107); CREATININE FOR GFR 0.83 MG/DL (0.70-1.30); GLOMERULAR FILTRATION RATE > 60.0 (>49); GLUCOSE, FASTING 95 MG/DL (74-106); SODIUM LEVEL 142 MMOL/L (136-145)
[2022-02-11 19:33] LABS: HEMOGLOBIN A1c 5.6 % (4.0-6.0)
== END ==
LOC: M LABDRWAD 16:11
PROVIDERS: ATTEND Nurse Practitioner Family
DX: R73.03 Prediabetes (principal)

== ENCOUNTER → 2022-08-12 | Outpatient (REF) | payer OTHER, BC ==
[~2022-08-12] MED LIST changes: -LOSA100T45; +LOSA100T46
[2022-08-12 14:24] LABS: HEMOGLOBIN A1c 5.8 % (4.0-6.0)
[2022-08-12 14:43] LABS: CREATININE, URINE 193.4 MG/DL
[2022-08-12 14:46] LABS: ALBUMIN 3.9 G/DL (3.2-5.2); ALKALINE PHOSPHATASE 61 U/L (46-116); ALT/SGPT 54 U/L (7.0-40); AST/SGOT 27 U/L (<34); BILIRUBIN,TOTAL 0.8 MG/DL (0.3-1.2); BLOOD UREA NITROGEN 23 MG/DL (9-23); CALCIUM LEVEL 8.5 MG/DL (8.3-10.6); CARBON DIOXIDE LEVEL 31 MMOL/L (20-31); CHLORIDE LEVEL 105 MMOL/L (98-107); CHOLESTEROL LEVEL 124 MG/DL (<200); CREATININE FOR GFR 0.87 MG/DL (0.70-1.30); GLOMERULAR FILTRATION RATE > 60.0 (>49); GLUCOSE, FASTING 131 MG/DL (74-106); LDL CHOLESTEROL 70.6 MG/DL (<100); POTASSIUM SERUM 3.3 MMOL/L (3.5-5.1); SODIUM LEVEL 141 MMOL/L (136-145); TRIGLYCERIDES LEVEL 112 MG/DL (<150)
[2022-08-12 14:48] LABS: TOTAL 25(OH) VITAMIN D 61.2 NG/ML (20.0-100.0)
== END ==
LOC: M LABDRWAD 13:00
PROVIDERS: ATTEND Nurse Practitioner Family
DX: I10 Essential (primary) hypertension (principal); E78.2 Mixed hyperlipidemia; E55.9 Vitamin D deficiency, unspecified; R73.03 Prediabetes

== ENCOUNTER → 2023-02-28 | Outpatient (REF) | payer OTHER, BC, MEDICARE ==
[~2023-02-28] MED LIST changes: -K-TA10TA2 PO; +POTA-165 PO
[2023-02-28 14:32] LABS: BLOOD UREA NITROGEN 20 MG/DL (9-23); CALCIUM LEVEL 9.1 MG/DL (8.3-10.6); CARBON DIOXIDE LEVEL 34 MMOL/L (20-31); CHLORIDE LEVEL 104 MMOL/L (98-107); CREATININE FOR GFR 0.89 MG/DL (0.70-1.30); GLOMERULAR FILTRATION RATE > 60.0 (>49); GLUCOSE, FASTING 97 MG/DL (74-106); POTASSIUM SERUM 3.3 MMOL/L (3.5-5.1); PSA SCREENING 6.63 NG/ML (< 4.00); SODIUM LEVEL 141 MMOL/L (136-145)
[2023-02-28 15:33] LABS: HEMOGLOBIN A1c 5.4 % (4.0-6.0)
== END ==
LOC: M LABDRWAD 12:28
PROVIDERS: ATTEND Nurse Practitioner Family
DX: R73.03 Prediabetes (principal); Z80.42 Family history of malignant neoplasm of prostate
CPT/HCPCS: 36415; 80048; 83036; G0103

== ENCOUNTER → 2023-03-23 | Outpatient (REF) | payer MEDICARE, BC | LOC: M SFHCADAM 08:54 | PROVIDERS: ATTEND Nurse Practitioner Family | DX: R97.20 Elevated prostate specific antigen [PSA] (principal) ==

== ENCOUNTER → 2023-04-01 | Outpatient (REF) | payer MEDICARE, BC ==
[~2023-04-01] MED LIST changes: -AMLO1TAB25; +AMLO1TAB25 PO; -BUPR300T92; +BUPR300T92 PO; -CHLO125TA; +CHLO125TA PO; +CITRTAB18 PO; +DUPI300I SC; +ERGO500029 PO; +FLINCHW14 PO; -HYDR-643; +HYDR-643 PO; +HYDR25OIN TOP; +IRON65TA2 PO; -LOSA100T46; +LOSA100T46 PO; +MOME17SP NS; +SEMA1PEN2 SQ
== END ==
LOC: M SMT PRO 12:32
PROVIDERS: ATTEND Urology
DX: R97.20 Elevated prostate specific antigen [PSA] (principal); Z79.899 Other long term (current) drug therapy; Z99.89 Dependence on other enabling machines and devices; Z88.1 Allergy status to other antibiotic agents; Z88.2 Allergy status to sulfonamides; Z91.048 Other nonmedicinal substance allergy status; Z80.42 Family history of malignant neoplasm of prostate

== ENCOUNTER 2023-04-18 07:15 | Day surgery (SDC) | payer MEDICARE, BC, OTHER ==
[~2023-04-18] VITALS: Ht 180.3 cm; Wt 111.9 kg
[~2023-04-18 07:15] MED LIST changes: +LIDOCAINE 2% 100MG/5ML SDV (FOR ANES.) As Ordered ONE; +propofoL 200 MG/20 ML VIAL As Ordered ONE
[2023-04-18] MEDS: NS 1,000 ML IV ONE (07:26)
[2023-04-18 08:35] VITALS: TEMP 96.1
[2023-04-18 08:53] VITALS: BP 130/60; O2SAT 99
== END 2023-04-18 09:01 | disposition home or self-care (01) ==
LOC: M OPP 07:15
PROVIDERS: ATTEND Internal Medicine Gastroenterology
DX: Z12.11 Encounter for screening for malignant neoplasm of colon (principal); D12.3 Benign neoplasm of transverse colon; D12.5 Benign neoplasm of sigmoid colon; K57.30 Diverticulosis of large intestine without perforation or abscess without bleeding; K64.8 Other hemorrhoids; G47.30 Sleep apnea, unspecified; Z99.89 Dependence on other enabling machines and devices; Z98.84 Bariatric surgery status; Z79.891 Long term (current) use of opiate analgesic; Z79.899 Other long term (current) drug therapy; Z88.2 Allergy status to sulfonamides; Z88.6 Allergy status to analgesic agent; Z91.048 Other nonmedicinal substance allergy status

== ENCOUNTER → 2023-08-23 | Outpatient (REF) | payer MEDICARE, BC, OTHER ==
[~2023-08-23] MED LIST changes: +BUPR-597 PO; -BUPR300T92 PO; -LIDOCAINE 2% 100MG/5ML SDV (FOR ANES.) As Ordered ONE; -propofoL 200 MG/20 ML VIAL As Ordered ONE
[2023-08-23 14:52] LABS: IRON (FE) 83 UG/DL (65-175)
[2023-08-23 14:53] LABS: BASO % 0.4 % (0.0-1.0); EOS # 0.1 10^3/uL (0.0-0.5); EOS % 1.3 % (0.0-3.0); HEMATOCRIT 41.9 % (42.0-52.0); HEMOGLOBIN 14.1 g/dl (13.5-17.5); LYMPH # 1.6 10^3/uL (1.5-5.0); LYMPH % 29.6 % (24.0-44.0); MEAN CORPUSCULAR HEMOGLOBIN 31.5 pg (27.0-33.0); MEAN CORPUSCULAR HGB CONC 33.7 g/dl (32.0-36.5); MEAN CORPUSCULAR VOLUME 93.5 fl (80.0-96.0); MONO # 0.5 10^3/uL (0.0-0.8); MONO % 9.2 % (2.0-8.0); NEUTROPHILS # 3.3 10^3/uL (1.5-8.5); PLATELET COUNT, AUTOMATED 207 10^3/uL (150-450); RED BLOOD COUNT 4.48 10^6/uL (4.30-6.10); WHITE BLOOD COUNT 5.5 10^3/uL (4.0-10.0)
[2023-08-23 14:55] LABS: PERCENT SATURATION 24.2 % (19.7-50.0); TOTAL IRON BINDING CAPACITY 343 UG/DL (250-425)
[2023-08-23 14:56] LABS: ALBUMIN 3.7 G/DL (3.2-5.2); ALKALINE PHOSPHATASE 61 U/L (46-116); ALT/SGPT 68 U/L (7.0-40); AST/SGOT 19 U/L (<34); BILIRUBIN,TOTAL 0.9 MG/DL (0.3-1.2); BLOOD UREA NITROGEN 20 MG/DL (9-23); CALCIUM LEVEL 9.2 MG/DL (8.3-10.6); CARBON DIOXIDE LEVEL 33 MMOL/L (20-31); CHLORIDE LEVEL 103 MMOL/L (98-107); CHOLESTEROL LEVEL 127 MG/DL (<200); CHOLESTEROL RISK RATIO 3.27 (<5); CREATININE FOR GFR 0.84 MG/DL (0.70-1.30); GLOMERULAR FILTRATION RATE > 60.0 (>49); GLUCOSE, FASTING 96 MG/DL (74-106); HDL CHOLESTEROL 38.8 MG/DL (>40); NON-HDL-C 88.2 MG/DL; POTASSIUM SERUM 3.4 MMOL/L (3.5-5.1); SODIUM LEVEL 143 MMOL/L (136-145); TRIGLYCERIDES LEVEL 106 MG/DL (<150)
[2023-08-23 14:57] LABS: FERRITIN 121.1 NG/ML (10.5-307.3)
[2023-08-23 14:58] LABS: TOTAL 25(OH) VITAMIN D 61.2 NG/ML (20.0-100.0); VITAMIN B12 LEVEL 912 PG/ML (211-911)
[2023-08-23 15:15] LABS: HEMOGLOBIN A1c 5.3 % (4.0-6.0)
== END ==
LOC: M LABDRWAD 13:54
PROVIDERS: ATTEND Nurse Practitioner Family
DX: I10 Essential (primary) hypertension (principal); E78.2 Mixed hyperlipidemia; E55.9 Vitamin D deficiency, unspecified; R73.03 Prediabetes; Z98.84 Bariatric surgery status

== ENCOUNTER 2023-10-16 07:19 | Emergency (ER) | payer MEDICARE, BC ==
[~2023-10-16] VITALS: Ht 177.8 cm; Wt 109.1 kg
[2023-10-16 08:31] LABS: BASO % 0.4 % (0.0-1.0); EOS % 0.1 % (0.0-3.0); HEMATOCRIT 44.1 % (42.0-52.0); HEMOGLOBIN 15.3 g/dl (13.5-17.5); LYMPH % 10.5 % (24.0-44.0); MEAN CORPUSCULAR HEMOGLOBIN 31.4 pg (27.0-33.0); MEAN CORPUSCULAR HGB CONC 34.7 g/dl (32.0-36.5); MEAN CORPUSCULAR VOLUME 90.4 fl (80.0-96.0); MONO # 0.5 10^3/uL (0.0-0.8); MONO % 5.5 % (2.0-8.0); NEUTROPHILS # 7.7 10^3/uL (1.5-8.5); NEUTROPHILS % 83.2 % (36.0-66.0); PLATELET COUNT, AUTOMATED 227 10^3/uL (150-450); RED BLOOD COUNT 4.88 10^6/uL (4.30-6.10); WHITE BLOOD COUNT 9.3 10^3/uL (4.0-10.0)
[2023-10-16 09:01] LABS: BLOOD UREA NITROGEN 21 MG/DL (9-23); CALCIUM LEVEL 9.8 MG/DL (8.3-10.6); CARBON DIOXIDE LEVEL 30 MMOL/L (20-31); CHLORIDE LEVEL 105 MMOL/L (98-107); CREATININE FOR GFR 1.12 MG/DL (0.70-1.30); GLOMERULAR FILTRATION RATE > 60.0 (>49); GLUCOSE, FASTING 123 MG/DL (74-106); POTASSIUM SERUM 3.2 MMOL/L (3.5-5.1); SODIUM LEVEL 141 MMOL/L (136-145)
[2023-10-16] MEDS: NS 1,000 ML IV ONE (10:29)
[2023-10-16] MEDS: ONDANSETRON 4MG 2ML VIAL IV ONE (10:29)
[2023-10-16] MEDS: MORPHINE 4 MG/ML 1ML VIAL IV ONE (10:29)
[2023-10-16 11:08] VITALS: BP 165/79; TEMP 97.4
[2023-10-16 11:10] VITALS: O2SAT 95
[2023-10-16] MEDS ORDERED: ONDA-282 PO (12:33)
[2023-10-16] MEDS ORDERED: HYDR-3713 PO (12:33)
[2023-10-16] MEDS ORDERED: MIRA3350 PO (12:33)
== END 2023-10-16 12:57 | disposition home or self-care (01) ==
LOC: M ED 07:19
DX: N20.1 Calculus of ureter (principal); K21.9 Gastro-esophageal reflux disease without esophagitis; I10 Essential (primary) hypertension; G47.30 Sleep apnea, unspecified; K57.90 Diverticulosis of intestine, part unspecified, without perforation or abscess without bleeding; Z87.442 Personal history of urinary calculi; Z88.2 Allergy status to sulfonamides; Z91.048 Other nonmedicinal substance allergy status; Z98.84 Bariatric surgery status; Z79.811 Long term (current) use of aromatase inhibitors; Z79.83 Long term (current) use of bisphosphonates; Z79.899 Other long term (current) drug therapy
CPT/HCPCS: 74176; 80048; 81001; 85025; 96374; 99284; J2405

== ENCOUNTER → 2023-11-10 | Outpatient (REF) | payer MEDICARE, BC ==
[~2023-11-10] MED LIST changes: +HYDR-3713 PO; +MIRA3350 PO; +ONDA-282 PO
[2023-11-11 13:56] LABS: PSA % FREE NOT CALCULATED % (calc) (>25); PSA FREE 1.7 ng/mL; PSA TOTAL 12.7 ng/mL (< OR = 4.0)
== END ==
LOC: M SFHCADAM 09:36
PROVIDERS: ATTEND Urology
DX: R97.20 Elevated prostate specific antigen [PSA] (principal)

== ENCOUNTER → 2023-11-21 | Outpatient (REF) | payer MEDICARE, BC ==
[2023-11-21 10:11] LABS: APPEARANCE, URINE HAZY (CLEAR); BACTERIA, URINE AUTO NEGATIVE (NEGATIVE); BILIRUBIN, URINE AUTO NEGATIVE (NEGATIVE); BLOOD, URINE BLOOD NEGATIVE (NEGATIVE); COLOR, URINE YELLOW (YELLOW); GLUCOSE, URINE (UA) AUTO NEGATIVE (NEGATIVE); KETONE, URINE AUTO NEGATIVE (NEGATIVE); LEUKOCYTE ESTERASE, URINE AUTO NEGATIVE (NEGATIVE); MUCUS, URINE MODERATE (NEGATIVE); NITRITE, URINE AUTO NEGATIVE (NEGATIVE); PROTEIN, URINE AUTO NEGATIVE (NEGATIVE); RBC, URINE AUTO 1 /HPF (0-3); SPECIFIC GRAVITY URINE AUTO 1.021 (1.002-1.035); SQUAMOUS EPITHELIAL CELL UR AU 0 /HPF (0-6); UROBILINOGEN, URINE AUTO 0.2 mg/dL (0.0-2.0); WBC, URINE AUTO 1 /HPF (0-3)
== END ==
LOC: M SMT 09:30
PROVIDERS: ATTEND Nurse Practitioner Family
DX: R97.20 Elevated prostate specific antigen [PSA] (principal); Z79.899 Other long term (current) drug therapy

== ENCOUNTER → 2023-11-25 | Outpatient (CLI) | payer MEDICARE, BC ==
[~2023-11-25] MED LIST changes: +PROHANCE 279.3MG/ML 15ML VIAL As Ordered ONE; +PROHANCE 279.3MG/ML 5ML VIAL As Ordered ONE
== END ==
LOC: M RAD 08:02
PROVIDERS: ATTEND Nurse Practitioner Family
DX: R97.20 Elevated prostate specific antigen [PSA] (principal)
CPT/HCPCS: 72197; A9576

== ENCOUNTER → 2023-12-09 | Outpatient (REF) | payer MEDICARE, BC, OTHER ==
[~2023-12-09] MED LIST changes: -PROHANCE 279.3MG/ML 15ML VIAL As Ordered ONE; -PROHANCE 279.3MG/ML 5ML VIAL As Ordered ONE
== END ==
LOC: M LAB REF 17:28
PROVIDERS: ATTEND Ophthalmology
DX: H02.821 Cysts of right upper eyelid (principal)

== ENCOUNTER → 2024-02-08 | Outpatient (CLI) | payer MEDICARE, BC, OTHER ==
[2024-02-08 12:24] LABS: BLOOD UREA NITROGEN 21 MG/DL (9-23); CALCIUM LEVEL 9.3 MG/DL (8.3-10.6); CARBON DIOXIDE LEVEL 34 MMOL/L (20-31); CHLORIDE LEVEL 102 MMOL/L (98-107); GLOMERULAR FILTRATION RATE > 60.0 (>49); GLUCOSE, FASTING 84 MG/DL (74-106); POTASSIUM SERUM 3.2 MMOL/L (3.5-5.1); PSA SCREENING 6.33 NG/ML (< 4.00); SODIUM LEVEL 142 MMOL/L (136-145)
[2024-02-08 12:29] LABS: HEMOGLOBIN A1c 5.3 % (4.0-6.0)
== END ==
LOC: M WUC 10:08
PROVIDERS: ATTEND Nurse Practitioner Family
DX: R73.03 Prediabetes (principal); R97.20 Elevated prostate specific antigen [PSA]; Z12.5 Encounter for screening for malignant neoplasm of prostate
CPT/HCPCS: 36415; 80048; 83036; 84153; G0103

== ENCOUNTER → 2024-02-08 | Outpatient (CLI) | payer MEDICARE, BC, OTHER | LOC: M WUC 10:04 | PROVIDERS: ATTEND Nurse Practitioner Family | DX: R97.20 Elevated prostate specific antigen [PSA] (principal) ==

== ENCOUNTER → 2024-11-30 | Outpatient (CLI) | payer MEDICARE, BC ==
[~2024-11-30] MED LIST changes: -BUPR-597 PO; +BUPR-766 PO; -FLOM0.4C39 PO; +TAMS-18 PO
== END ==
LOC: M WUC 09:50
PROVIDERS: ATTEND Nurse Practitioner Family
DX: R97.20 Elevated prostate specific antigen [PSA] (principal)

== ENCOUNTER → 2025-02-22 | Outpatient (CLI) | payer MEDICARE, BC ==
[2025-02-22 13:45] LABS: ESTIMATED AVERAGE GLUCOSE 105.0 MG/DL (60-110)
[2025-02-22 14:31] LABS: ALT/SGPT 52 U/L (7.0-40); AST/SGOT 28 U/L (<34); CALCIUM LEVEL 8.6 MG/DL (8.3-10.6); CARBON DIOXIDE LEVEL 34 MMOL/L (20-31); CHLORIDE LEVEL 103 MMOL/L (98-107); CREATININE FOR GFR 0.90 MG/DL (0.70-1.30); GLOMERULAR FILTRATION RATE > 90.0 (>49); POTASSIUM SERUM 3.3 MMOL/L (3.5-5.1); SODIUM LEVEL 143 MMOL/L (136-145)
== END ==
LOC: M WUC 09:51
PROVIDERS: ATTEND Nurse Practitioner Family
DX: R73.03 Prediabetes (principal); R97.20 Elevated prostate specific antigen [PSA]

== ENCOUNTER → 2025-02-22 | Outpatient (CLI) | payer MEDICARE, BC | LOC: M WUC 09:52 | PROVIDERS: ATTEND Nurse Practitioner Family | DX: R97.20 Elevated prostate specific antigen [PSA] (principal) ==